=== PATIENT | male | born 1970 | race Caucasian/White ===

== ENCOUNTER 2016-05-30 18:22 | Emergency (ER) | payer MEDICARE, OTHER ==
[2016-05-30 18:34] VITALS: BP 136/82
--- NOTE | 2016-05-30 19:55 | ED ---
Lower Extremity Injury HPI - General Chief Complaint: Extremity Injury, Lower Stated Complaint: rt leg pain Time Seen by Provider: 05/30/16 19:01 Source: patient, RN notes reviewed Mode of arrival: ambulatory Limitations: no limitations - History of Present Illness Initial Comments: Patient is a 46-year-old male presenting to the with chief complaint of right thigh aching when he sits wrong. Time. He denies any swelling or injuries of the thigh. He states that he is concerned he has a blood clot because it aches. Patient also reports that his feet have occasional tingling- like pain. Patient denies any swelling of the leg or extremity. He reports he has had this pain for a few weeks. Patient reports the pain only occurs when he is sitting. He stated it is not worse with with Movement. Patient denies any recent fever, chills, shortness of breath, chest pain, back pain, abdominal pain, nausea vomiting, numbness or tingling, dysuria or hematuria, constipation or diarrhea, headaches or visual changes, or any other current symptoms - Related Data Home Medications Medication Instructions Recorded Confirmed Citalopram Hydrobromide [CeleXA] 40 mg PO DAILY 09/11/15 03/18/16 Metoprolol Tartrate [Lopressor] 50 mg PO BID 09/11/15 03/18/16 Simvastatin [Zocor] 10 mg PO HS 09/11/15 03/18/16 lamoTRIgine [LaMICtal] 25 mg PO DAILY 09/11/15 03/18/16 Omeprazole [PriLOSEC] 40 mg PO DAILY 03/18/16 03/18/16 Previous Rx's Medication Instructions Recorded Ibuprofen [Motrin] 800 mg PO Q6HR PRN #30 tab 09/11/15 predniSONE 50 mg PO DAILY #5 tab 03/18/16 Naproxen 500 mg PO Q12HR #20 tab 05/30/16 Allergies Allergy/AdvReac Type Severity Reaction Status Date / Time cephalexin monohydrate Allergy Unknown Verified 05/30/16 18:34 [From Keflex] Review of Systems ROS Statement: Those systems with pertinent positive or pertinent negative responses have been documented in the HPI. ROS Other: All systems not noted in ROS Statement are negative. Past Medical History Past Medical History: GERD/Reflux, Hyperlipidemia, Hypertension Additional Past Medical History / Comment(s): colitis History of Any Multi-Drug Resistant Organisms: None Reported Past Surgical History: No Surgical Hx Reported Past Psychological History: Panic Disorder Smoking Status: Former smoker Past Alcohol Use History: None Reported Past Drug Use History: None Reported General Exam - General Exam Comments Initial Comments: Patient is a 46-year-old male. He is on appear to be in any acute distress. Limitations: no limitations General appearance: alert, in no apparent distress Head exam: Present: atraumatic, normocephalic, normal inspection Eye exam: Present: normal appearance, PERRL, EOMI. Absent: scleral icterus, conjunctival injection, periorbital swelling ENT exam: Present: normal exam, mucous membranes moist Neck exam: Present: normal inspection. Absent: tenderness, meningismus, lymphadenopathy Respiratory exam: Present: normal lung sounds bilaterally. Absent: respiratory distress, wheezes, rales, rhonchi, stridor Cardiovascular Exam: Present: regular rate, normal rhythm, normal heart sounds. Absent: systolic murmur, diastolic murmur, rubs, gallop, clicks GI/Abdominal exam: Present: soft, normal bowel sounds. Absent: distended, tenderness, guarding, rebound, rigid Right Hip exam: Present: normal inspection, full ROM Upper Leg exam: Present: normal inspection, full ROM, tenderness (Reports some tenderness in the medial thigh.) Knee exam: Present: normal inspection, full ROM Lower Leg exam: Present: normal inspection, full ROM Ankle exam: Present: normal inspection, full ROM Foot/Toe exam: Present: normal inspection, full ROM Neurovascular tendon exam: Present: no vascular compromise Gait: observed and normal Back exam: Present: normal inspection Course Vital Signs 05/30/16 05/30/16 18:31 20:18 Temperature 97.9 F 98.0 F Pulse Rate 83 89 Respiratory 16 19 Rate Blood Pressure 136/82 O2 Sat by Pulse 96 98 Oximetry Medical Decision Making - Medical Decision Making Patient is a 46-year-old male. He does not appear to be in any acute distress. He is reporting he has right thigh pain that is only worse with sitting for long periods of time. He states that he has relatively inactive. Patient was given an ultrasound of the right lower extremity to rule out possible blood clot. Is very unlikely he has a blood clot. US was ruled to be negative for blood clot. Patient advised to follow up with PCP for nerve conduction studies. Patient given Rx for antiinflammatories. Patient understands treatment plan and will comply. - Radiology Data Radiology results: report reviewed US is negative for DVT. Disposition Clinical Impression: Strain of right quadriceps Disposition: HOME SELF-CARE Condition: Good Instructions: Muscle Strain (ED) Additional Instructions: Patient instructed to take anti-inflammatory medications as prescribed. Follow- up with primary care provider. Return to the [facility] if any alarming signs or symptoms occur. Prescriptions: Naproxen 500 mg PO Q12HR #20 tab Referrals: Nora Sepulveda DO [Primary Care Provider] - 1-2 days Time of Disposition: 20:08
--- NOTE | 2016-05-30 20:11 | US ---
EXAMINATION TYPE: US venous doppler duplex LE RT DATE OF EXAM: 05/30/2016 7:58 PM COMPARISON: NONE CLINICAL HISTORY: Pain. Right thigh pain, fell off roof x 6 months ago, been having issues since. No hx of blood clots or on blood thinners. SIDE PERFORMED: right VESSELS IMAGED: External Iliac Vein (EIV) Common Femoral Vein Deep Femoral Vein Greater Saphenous Vein * Femoral Vein Popliteal Vein Small Saphenous Vein * Proximal Calf Veins (* superficial vessels) TECHNOLOGIST IMPRESSION: Right Leg: Appears negative for DVT IMPRESSION: Normal exam. No evidence of deep venous thrombosis in the right leg.
[2016-05-30 20:19] VITALS: PULSE 89; RESP 19; TEMP 98
== END 2016-05-30 20:22 | disposition home or self-care (01) ==
LOC: EC 18:22
DX: S76.111A Strain of right quadriceps muscle, fascia and tendon, initial encounter (principal); K21.9 Gastro-esophageal reflux disease without esophagitis; E78.5 Hyperlipidemia, unspecified; I10 Essential (primary) hypertension; F41.0 Panic disorder [episodic paroxysmal anxiety]; Z87.891 Personal history of nicotine dependence; Z79.899 Other long term (current) drug therapy; Z88.1 Allergy status to other antibiotic agents; X58.XXXA Exposure to other specified factors, initial encounter
CPT/HCPCS: 99283

== ENCOUNTER 2016-06-26 09:26 | Emergency (ER) | payer MEDICARE, OTHER ==
[2016-06-26 10:15] LABS: Basophils % (A) 0 %; CH 31.5; CHCM 35.8; Eosinophils # (A) 0.2 k/uL (0-0.7); Eosinophils % (A) 3 %; HCT 43.3 % (39.0-53.0); HDW 2.78; HGB 14.8 gm/dL (13.0-17.5); Luc # (Auto) 0.11; Luc % (Auto) 2; Lymphocytes # (A) 1.1 k/uL (1.0-4.8); Lymphocytes % (A) 19 %; MCH 30.2 pg (25.0-35.0); MCHC 34.2 g/dL (31.0-37.0); MCV 88.4 fL (80.0-100.0); Mean Platelet Volume 6.9; Monocytes # (A) 0.3 k/uL (0-1.0); Monocytes % (A) 6 %; Neutrophils % (A) 70 %; RDW 12.8 % (11.5-15.5); WBC 5.8 k/uL (3.8-10.6); WBC (Perox) 5.72
[2016-06-26 10:23] LABS: Partial Thromboplastin Time 26.7 sec (22.0-30.0)
[2016-06-26 10:24] LABS: ALT 63 U/L (21-72); AST 35 U/L (17-59); Alkaline Phosphatase 76 U/L (38-126); Anion Gap 11 mmol/L; Blood Urea Nitrogen 16 mg/dL (9-20); Calcium 9.8 mg/dL (8.4-10.2); Carbon Dioxide 28 mmol/L (22-30); Chloride 104 mmol/L (98-107); Glucose 100 mg/dL (74-99); Magnesium 1.9 mg/dL (1.6-2.3); Non-African American GFR(MDRD) >60 (>60 ml/min/1.73 sqM); Potassium 4.7 mmol/L (3.5-5.1); Sodium 143 mmol/L (137-145); Total Bilirubin 0.9 mg/dL (0.2-1.3); Total Protein 7.9 g/dL (6.3-8.2)
--- NOTE | 2016-06-26 10:30 | ED ---
General Adult HPI - General Chief complaint: Chest Pain Stated complaint: chest pressure Time Seen by Provider: 06/26/16 09:47 Source: patient, RN notes reviewed, old records reviewed Mode of arrival: ambulatory Limitations: no limitations - History of Present Illness Initial comments: This is a 38-year-old male the ER for evaluation. This patient presents here for evaluation of chest pain, atypical chest pain. Patient does have history of high blood pressure no high cholesterol no diabetes no-shows of breath nonsmoker. Patient states he had a trauma occasionally feels pain stemming from his trauma which was a fall off roof with his leg in his neck and his back and his chest. Patient has no new trauma, no short of breath but states he started having sharp pain in his leg and then sharp pain in his chest starting last night. No modifying factors for pain all. Again no fevers, no travel history no history of DVT. Chest pain is mildly reproducible when he presses no rash noted. Patient has had stress tests in the past which was normal. At this time patient denies specific chest pain - Related Data Home Medications Medication Instructions Recorded Confirmed Citalopram Hydrobromide [CeleXA] 40 mg PO DAILY 09/11/15 06/26/16 Metoprolol Tartrate [Lopressor] 50 mg PO BID 09/11/15 06/26/16 Simvastatin [Zocor] 10 mg PO HS 09/11/15 06/26/16 lamoTRIgine [LaMICtal] 25 mg PO DAILY 09/11/15 06/26/16 Omeprazole [PriLOSEC] 40 mg PO DAILY 03/18/16 06/26/16 Previous Rx's Medication Instructions Recorded Ibuprofen [Motrin] 800 mg PO Q6HR PRN #30 tab 09/11/15 predniSONE 50 mg PO DAILY #5 tab 03/18/16 Naproxen 500 mg PO Q12HR #20 tab 05/30/16 Allergies Allergy/AdvReac Type Severity Reaction Status Date / Time cephalexin monohydrate Allergy Unknown Verified 06/26/16 09:36 [From [address]] Review of Systems ROS Statement: Those systems with pertinent positive or pertinent negative responses have been documented in the HPI. ROS Other: All systems not noted in ROS Statement are negative. Past Medical History Past Medical History: GERD/Reflux, Hyperlipidemia, Hypertension Additional Past Medical History / Comment(s): colitis History of Any Multi-Drug Resistant Organisms: None Reported Past Surgical History: No Surgical Hx Reported Past Psychological History: Panic Disorder Smoking Status: Former smoker Past Alcohol Use History: None Reported Past Drug Use History: None Reported General Exam Limitations: no limitations General appearance: alert, in no apparent distress Head exam: Present: atraumatic, normocephalic, normal inspection Eye exam: Present: normal appearance, PERRL, EOMI. Absent: scleral icterus, conjunctival injection, periorbital swelling ENT exam: Present: normal exam, mucous membranes moist Neck exam: Present: normal inspection. Absent: tenderness, meningismus, lymphadenopathy Respiratory exam: Present: normal lung sounds bilaterally. Absent: respiratory distress, wheezes, rales, rhonchi, stridor Cardiovascular Exam: Present: regular rate, normal rhythm, normal heart sounds. Absent: systolic murmur, diastolic murmur, rubs, gallop, clicks GI/Abdominal exam: Present: soft, normal bowel sounds. Absent: distended, tenderness, guarding, rebound, rigid Extremities exam: Present: normal inspection, full ROM, normal capillary refill. Absent: tenderness, pedal edema, joint swelling, calf tenderness Back exam: Present: normal inspection Neurological exam: Present: alert, oriented X3, CN II-XII intact Psychiatric exam: Present: normal affect, normal mood Skin exam: Present: warm, dry, intact, normal color. Absent: rash Course Vital Signs 06/26/16 06/26/16 09:33 11:00 Temperature 97.8 F Pulse Rate 69 58 L Respiratory 18 16 Rate Blood Pressure 126/84 126/71 O2 Sat by Pulse 97 96 Oximetry - Reevaluation(s) Reevaluation #1: 06/26/16 11:28 Patient consult to greater than 50 minutes regarding chest pain, chest pain greater than one day, low likelihood for cardiac event, patient would like to follow-up with his family care for further evaluation and testing. EKG Findings - EKG Comments: EKG Findings:: EKG shows normal sinus [place] 6, [place] 132, QRS 88, QTC 396 Medical Decision Making - Medical Decision Making 38 mallei are for evaluation of chest pain, patient will likely be discharged home as he feels well as a no acute distress x-rays negative labs and normal EKG is negative. Patient can be discharged home - Lab Data Result diagrams: 06/26/16 10:00 06/26/16 10:00 Lab Results 06/26/16 06/26/16 06/26/16 Range/Units 10:00 10:00 10:00 WBC 5.8 (3.8-10.6) k/uL RBC 4.90 (4.30-5.90) m/uL Hgb 14.8 (13.0-17.5) gm/dL Hct 43.3 (39.0-53.0) % MCV 88.4 (80.0-100.0) fL MCH 30.2 (25.0-35.0) pg MCHC 34.2 (31.0-37.0) g/dL RDW 12.8 (11.5-15.5) % Plt Count 238 (150-450) k/uL Neutrophils % 70 % Lymphocytes % 19 % Monocytes % 6 % Eosinophils % 3 % Basophils % 0 % Neutrophils # 4.0 (1.3-7.7) k/uL Lymphocytes # 1.1 (1.0-4.8) k/uL Monocytes # 0.3 (0-1.0) k/uL Eosinophils # 0.2 (0-0.7) k/uL Basophils # 0.0 (0-0.2) k/uL PT (9.0-12.0) sec INR (<1.1) APTT (22.0-30.0) sec Sodium 143 (137-145) mmol/L Potassium 4.7 (3.5-5.1) mmol/L Chloride 104 (98-107) mmol/L Carbon Dioxide 28 (22-30) mmol/L Anion Gap 11 mmol/L BUN 16 (9-20) mg/dL Creatinine 1.01 (0.66-1.25) mg/dL Est GFR (MDRD) Af Amer >60 (>60 ml/min/1.73 sqM) Est GFR (MDRD) Non-Af >60 (>60 ml/min/1.73 sqM) Glucose 100 H (74-99) mg/dL Calcium 9.8 (8.4-10.2) mg/dL Magnesium 1.9 (1.6-2.3) mg/dL Total Bilirubin 0.9 (0.2-1.3) mg/dL AST 35 (17-59) U/L ALT 63 (21-72) U/L Alkaline Phosphatase 76 (38-126) U/L Total Creatine Kinase 132 (55-170) U/L CK-MB (CK-2) 1.1 (0.0-2.4) ng/mL CK-MB (CK-2) Rel Index 0.8 Troponin I <0.012 (0.000-0.034) ng/mL Total Protein 7.9 (6.3-8.2) g/dL Albumin 4.6 (3.5-5.0) g/dL Lipase 178 (23-300) U/L 06/26/16 Range/Units 10:00 WBC (3.8-10.6) k/uL RBC (4.30-5.90) m/uL Hgb (13.0-17.5) gm/dL Hct (39.0-53.0) % MCV (80.0-100.0) fL MCH (25.0-35.0) pg MCHC (31.0-37.0) g/dL RDW (11.5-15.5) % Plt Count (150-450) k/uL Neutrophils % % Lymphocytes % % Monocytes % % Eosinophils % % Basophils % % Neutrophils # (1.3-7.7) k/uL Lymphocytes # (1.0-4.8) k/uL Monocytes # (0-1.0) k/uL Eosinophils # (0-0.7) k/uL Basophils # (0-0.2) k/uL PT 10.0 (9.0-12.0) sec INR 1.0 (<1.1) APTT 26.7 (22.0-30.0) sec Sodium (137-145) mmol/L Potassium (3.5-5.1) mmol/L Chloride (98-107) mmol/L Carbon Dioxide (22-30) mmol/L Anion Gap mmol/L BUN (9-20) mg/dL Creatinine (0.66-1.25) mg/dL Est GFR (MDRD) Af Amer (>60 ml/min/1.73 sqM) Est GFR (MDRD) Non-Af (>60 ml/min/1.73 sqM) Glucose (74-99) mg/dL Calcium (8.4-10.2) mg/dL Magnesium (1.6-2.3) mg/dL Total Bilirubin (0.2-1.3) mg/dL AST (17-59) U/L ALT (21-72) U/L Alkaline Phosphatase (38-126) U/L Total Creatine Kinase (55-170) U/L CK-MB (CK-2) (0.0-2.4) ng/mL CK-MB (CK-2) Rel Index Troponin I (0.000-0.034) ng/mL Total Protein (6.3-8.2) g/dL Albumin (3.5-5.0) g/dL Lipase (23-300) U/L - Radiology Data Radiology results: report reviewed (Chest x-ray two-view is negative for acute disease), image reviewed Disposition Clinical Impression: Atypical chest pain, Chest pain Disposition: HOME SELF-CARE Condition: Good Instructions: Costochondritis (ED), Chest Pain (ED) Referrals: Nora Sepulveda DO [Primary Care Provider] - 1-2 days
[2016-06-26 10:34] LABS: Creatine Kinase 132 U/L (55-170)
--- NOTE | 2016-06-26 10:45 | XR ---
EXAMINATION TYPE: XR chest 2V DATE OF EXAM: 06/26/2016 10:36 AM COMPARISON: NONE HISTORY: Chest pain TECHNIQUE: Frontal and lateral views of the chest are obtained. FINDINGS: There is no focal air space opacity, pleural effusion, or pneumothorax seen. The cardiac silhouette size is within normal limits. There are overlying cardiac leads. Strand-like areas of inc reased density likely reflect atelectasis or scarring in the substernal location. The osseous structu res are intact. IMPRESSION: Probable atelectasis or scar, follow-up as indicated
[2016-06-26 10:47] LABS: Creatine Kinase MB 1.1 ng/mL (0.0-2.4); Troponin I <0.012 ng/mL (0.000-0.034)
[2016-06-26 11:17] VITALS: RESP 16
[2016-06-26 11:53] VITALS: BP 120/71; PULSE 56; TEMP 97.2
== END 2016-06-26 11:51 | disposition home or self-care (01) ==
LOC: EC 09:26
DX: R07.89 Other chest pain (principal); I10 Essential (primary) hypertension; K21.9 Gastro-esophageal reflux disease without esophagitis; E78.5 Hyperlipidemia, unspecified; F41.0 Panic disorder [episodic paroxysmal anxiety]; Z79.899 Other long term (current) drug therapy; Z87.891 Personal history of nicotine dependence; Z88.1 Allergy status to other antibiotic agents
CPT/HCPCS: 36415; 71020; 80053; 82550; 82553; 83690; 83735; 84484; 85025; 85610; 85730; 93005; 99285

== ENCOUNTER 2016-07-08 10:38 | Day surgery (SDC) | payer MEDICARE, OTHER ==
[2016-07-06 10:39] VITALS: BMI 29.9
[~2016-07-08 10:38] MED LIST: LACTATED RINGERS 1,000 ML IV SCH
[2016-07-08 11:00] VITALS: TEMP 98.7
[2016-07-08] MEDS ORDERED: fentaNYL (PF) 50 MCG/ML 2 ML AMP ONE (11:37)
[2016-07-08] MEDS ORDERED: MIDAZOLAM 2 MG/2 ML VIAL ONE (11:37)
[2016-07-08] MEDS ORDERED: PROPOFOL 10 MG/ML 20 ML VIAL IV ONE (11:37)
--- NOTE | 2016-07-08 12:01 | P.PCN ---
Date of Procedure: 07/08/16 Procedure(s) Performed: Brief history: Patient is a pleasant 46-year-old white male, scheduled for an elective upper endoscopy as well as colonoscopy as a part of evaluation of abdominal pain, change in bowel habits and long-standing history of gastroesophageal reflux symptoms of almost 5 years duration. Procedure performed: Esophagogastroduodenoscopy biopsy Colonoscopy with biopsy Preoperative diagnosis: GERD Change in bowel habits and abdominal pain Anesthesia: MAC Procedure: After informed consent was obtained from the patient was brought into the endoscopy unit and IV conscious sedation was administered by anesthesia under continuous monitoring. Initially upper endoscopy was done. The Olympus GF 160 video endoscope was inserted inserted into the mouth and esophagus intubated without any difficulty and was gradually advanced into the stomach and duodenum and carefully examined. The bulb and second part of the duodenum appeared normal. The scope was then withdrawn into the stomach adequately insufflated with air and upon careful examination the antrum had mild gastritis and biopsies were done from this area. The body, cardia and fundus appeared normal. The scope was then withdrawn into the esophagus. The GE junction was located at 40 cm to the incisors. It appeared regular with no erythema erosions or ulcerations. Rest of the esophagus appeared normal. Patient tolerated the procedure well. At this time the patient continued to remain sedation. Initial digital rectal examination was normal. Olympus CF 160 video colonoscope was then inserted into the rectum and gradually advanced to the cecum without any difficulty. Careful examination was performed as the scope was gradually being withdrawn. The prep was excellent. The cecum, ascending colon, appeared normal. In the transverse colon there was a 3 mm polyp removed by biopsy. The rest of the transverse colon, descending colon, sigmoid colon and rectum appeared normal. in the proximal rectum there was a 5 mm polyp that was removed by biopsy. Retroflexion was performed in the rectum and no lesions were noted. Patient tolerated the procedure well. Impression: 1.Upper endoscopy revealed mild antral gastritis but no evidence of esophagitis or peptic ulcer disease 2.[id number] revealed 2 mm transverse colon polyp and 5 mm rectal polyp which were removed by biopsy. Rest of the colon appeared normal. Recommendations: Findings of this examination were discussed with the patient as well ashis family. He was advised to follow with the biopsy results. If the biopsy shows a tubular adenoma he can have a repeat colonoscopy in 5 years.
[2016-07-08 12:13] VITALS: RESP 18
[2016-07-08 13:05] VITALS: BP 140/76; PULSE 70
== END 2016-07-08 12:59 | disposition home or self-care (01) ==
LOC: ORWHC2ENDO 10:38
PROVIDERS: ATTEND Internal Medicine Gastroenterology
DX: K29.50 Unspecified chronic gastritis without bleeding (principal); D12.3 Benign neoplasm of transverse colon; K62.1 Rectal polyp; K21.9 Gastro-esophageal reflux disease without esophagitis; I10 Essential (primary) hypertension; Z79.1 Long term (current) use of non-steroidal anti-inflammatories (NSAID); Z79.899 Other long term (current) drug therapy; Z88.1 Allergy status to other antibiotic agents; Z87.891 Personal history of nicotine dependence
CPT/HCPCS: 88305; 88342; 45380; 43239; J2250; J3010; J2704

== ENCOUNTER 2016-08-19 22:20 | Emergency (ER) | payer MEDICARE, OTHER ==
[2016-08-19 22:28] VITALS: TEMP 98.5
[2016-08-19 23:26] LABS: Basophils # (A) 0.1 k/uL (0-0.2); Basophils % (A) 1 %; CH 31.6; Eosinophils # (A) 0.3 k/uL (0-0.7); Eosinophils % (A) 4 %; HDW 2.68; HGB 14.8 gm/dL (13.0-17.5); Luc # (Auto) 0.19; Luc % (Auto) 3; Lymphocytes % (A) 28 %; MCH 31.2 pg (25.0-35.0); MCHC 34.4 g/dL (31.0-37.0); MCV 90.9 fL (80.0-100.0); Mean Platelet Volume 6.4; Monocytes # (A) 0.4 k/uL (0-1.0); Monocytes % (A) 5 %; Neutrophils # (A) 4.3 k/uL (1.3-7.7); Neutrophils % (A) 60 %; RBC 4.73 m/uL (4.30-5.90); RDW 13.3 % (11.5-15.5); WBC 7.1 k/uL (3.8-10.6); WBC (Perox) 6.67
[2016-08-19 23:37] LABS: ALT 56 U/L (21-72); AST 33 U/L (17-59); Alkaline Phosphatase 84 U/L (38-126); Amylase 60 U/L (30-110); Anion Gap 12 mmol/L; Blood Urea Nitrogen 20 mg/dL (9-20); Calcium 9.5 mg/dL (8.4-10.2); Carbon Dioxide 24 mmol/L (22-30); Chloride 107 mmol/L (98-107); Glucose 112 mg/dL (74-99); Magnesium 1.9 mg/dL (1.6-2.3); Non-African American GFR(MDRD) >60 (>60 ml/min/1.73 sqM); Potassium 4.5 mmol/L (3.5-5.1); Sodium 143 mmol/L (137-145); Total Bilirubin 0.6 mg/dL (0.2-1.3); Total Protein 7.4 g/dL (6.3-8.2)
[2016-08-19 23:40] LABS: Partial Thromboplastin Time 26.6 sec (22.0-30.0); Prothrombin Time 9.9 sec (9.0-12.0)
--- NOTE | 2016-08-19 23:40 | XR ---
EXAM: XR Chest, 1 View. CLINICAL HISTORY: Reason: chest pain TECHNIQUE: Frontal view of the chest. COMPARISON: Chest x-ray 06/26/2016 FINDINGS: Lungs: Stable minimal linear opacity at the left lung base, likely atelectasis or scarring. Lungs are otherwise clear. Pleural space: No pleural effusion. No pneumothorax. Heart: Unremarkable. No cardiomegaly. Mediastinum: Unremarkable. IMPRESSION: 1. No acute cardiopulmonary disease. 2. Stable linear opacity at the left lung base, likely atelectasis or scarring.
[2016-08-19 23:48] LABS: Creatine Kinase 131 U/L (55-170)
[2016-08-20] VITALS: BP 122/74; PULSE 75; RESP 18
[2016-08-20] LABS: Creatine Kinase MB 1.5 ng/mL (0.0-2.4); Troponin I <0.012 ng/mL (0.000-0.034)
--- NOTE | 2016-08-20 00:57 | ED ---
Chest Pain HPI - General Chief Complaint: Chest Pain Stated Complaint: left chest and rib pain Time Seen by Provider: 08/19/16 22:41 Source: patient Mode of arrival: ambulatory Limitations: no limitations - History of Present Illness Initial Comments: this patient is a 46-year-old man who presents with pain that started in his left lateral chest on morning. The patient states that it feels like a bubble is there. He states that the pain is mild, constant, and that he does not know anything that makes it get better or worse. States that it does not seem to be related to exertion area he has not had any related symptoms. MD Complaint: chest pain -: days(s) Onset: during rest Pain Location: left chest Pain Radiation: none Severity: mild Quality: other (Like a bubble) Consistency: constant Improves With: nothing Worsens With: nothing Treatments Prior to Arrival: none - Related Data Home Medications Medication Instructions Recorded Confirmed Citalopram Hydrobromide [CeleXA] 40 mg PO DAILY 09/11/15 08/19/16 Metoprolol Tartrate [Lopressor] 50 mg PO BID 09/11/15 08/19/16 lamoTRIgine [LaMICtal] 25 mg PO BID 09/11/15 08/19/16 Omeprazole [PriLOSEC] 40 mg PO DAILY 03/18/16 08/19/16 Lisinopril [Zestril] 10 mg PO HS 07/06/16 08/19/16 Multivitamin [Men's Multi-Vitamin] 1 tab PO HS 07/06/16 08/19/16 Cyanocobalamin (Vitamin B-12) 1,000 mcg PO HS 08/19/16 08/19/16 [Vitamin B-12] Simvastatin [Zocor] 10 mg PO HS 08/19/16 08/19/16 Topical Steroid Cream 1 applic TOPICAL DAILY 08/19/16 08/19/16 Allergies Allergy/AdvReac Type Severity Reaction Status Date / Time cephalexin monohydrate AdvReac Nausea & Verified 08/19/16 22:57 [From Keflex] Vomiting Review of Systems ROS Statement: Those systems with pertinent positive or pertinent negative responses have been documented in the HPI. ROS Other: All systems not noted in ROS Statement are negative. Constitutional: Denies: fever, chills Respiratory: Denies: cough, dyspnea Cardiovascular: Reports: chest pain. Denies: palpitations, dyspnea on exertion , orthopnea, edema, syncope Gastrointestinal: Denies: abdominal pain, nausea, vomiting Musculoskeletal: Denies: back pain Skin: Denies: rash Neurological: Denies: headache, weakness, numbness EKG Findings - EKG Results: EKG: interpreted by RAMESH, sinus rhythm, normal axis, normal QRS - Blocks, [place], Hypertrophy, ST Abn: Repolarization changes or abnormalities: nonspecific abnormality, ST segment, and/or T wave Past Medical History Past Medical History: GERD/Reflux, Hyperlipidemia, Hypertension Additional Past Medical History / Comment(s): PSORIASIS, COLITIS, FELL OFF ROOF 7 MONTHS AGO AND HAS SOME BACK PAIN. History of Any Multi-Drug Resistant Organisms: None Reported Past Surgical History: Adenoidectomy, Tonsillectomy Additional Past Surgical History / Comment(s): T & A (7 YRS OLD) Past Anesthesia/Blood Transfusion Reactions: No Reported Reaction Past Psychological History: Bipolar, Panic Disorder Smoking Status: Former smoker Past Alcohol Use History: None Reported Additional Past Alcohol Use History / Comment(s): QUIT SMOKING 1 YEAR AGO (2016) . SMOKED 1 PPD ON AND OFF FOR 15-20 YRS. Past Drug Use History: None Reported - Past Family History Mother Family Medical History: Cancer Additional Family Medical History / Comment(s): MELANOMA Father Family Medical History: Cancer Additional Family Medical History / Comment(s): PROSTATE CANCER General Exam Limitations: no limitations General appearance: alert, in no apparent distress Head exam: Present: atraumatic, normocephalic, normal inspection Eye exam: Present: normal appearance. Absent: scleral icterus, conjunctival injection Neck exam: Present: normal inspection, full ROM Respiratory exam: Present: normal lung sounds bilaterally. Absent: respiratory distress, wheezes, rales, rhonchi, stridor Cardiovascular Exam: Present: regular rate, normal rhythm, normal heart sounds. Absent: systolic murmur, diastolic murmur, rubs, gallop GI/Abdominal exam: Present: soft. Absent: tenderness, guarding, rebound Extremities exam: Present: normal inspection, normal capillary refill. Absent: pedal edema, calf tenderness Back exam: Present: normal inspection. Absent: CVA tenderness (R), CVA tenderness (L) Skin exam: Present: warm, dry, intact, normal color. Absent: rash Course Vital Signs 08/19/16 08/19/16 22:26 23:59 Temperature 98.5 F Pulse Rate 90 75 Respiratory 20 18 Rate Blood Pressure 139/75 122/74 O2 Sat by Pulse 98 97 Oximetry Disposition Clinical Impression: Chest pain Disposition: HOME SELF-CARE Condition: Good Instructions: Chest Pain (ED) Referrals: Nora Sepulveda DO [Primary Care Provider] - 1-2 days
== END 2016-08-20 01:16 | disposition home or self-care (01) ==
LOC: EC 22:20
DX: R07.9 Chest pain, unspecified (principal); I10 Essential (primary) hypertension; F31.9 Bipolar disorder, unspecified; K21.9 Gastro-esophageal reflux disease without esophagitis; E78.5 Hyperlipidemia, unspecified; Z88.1 Allergy status to other antibiotic agents; Z87.891 Personal history of nicotine dependence; Z79.899 Other long term (current) drug therapy
CPT/HCPCS: 36415; 71010; 80053; 82150; 82550; 82553; 83690; 83735; 84484; 85025; 85379; 85610; 85730; 93005; 99285

== ENCOUNTER 2016-11-14 05:57 | Observation (INO) | payer MEDICARE, OTHER ==
[2016-11-14] MEDS ORDERED: SODIUM CHLORIDE 0.9% 1,000 ML IV STA ×2 (06:18)
[2016-11-14] MEDS ORDERED: LORazepam 2 MG/ML SYRINGE IV STA (06:19)
[2016-11-14] MEDS: MORPHINE SULFATE 4 MG/ML SYRINGE IV STA ×2 (06:44→06:46)
[2016-11-14 06:56] LABS: Basophils % (A) 0 %; CH 31.4; CHCM 36.1; Eosinophils # (A) 0.2 k/uL (0-0.7); Eosinophils % (A) 4 %; HDW 2.79; HGB 15.2 gm/dL (13.0-17.5); Luc # (Auto) 0.14; Luc % (Auto) 3; Lymphocytes # (A) 1.4 k/uL (1.0-4.8); Lymphocytes % (A) 28 %; MCH 31.6 pg (25.0-35.0); MCHC 36.1 g/dL (31.0-37.0); MCV 87.6 fL (80.0-100.0); Mean Platelet Volume 6.5; Monocytes # (A) 0.4 k/uL (0-1.0); Monocytes % (A) 7 %; Neutrophils # (A) 2.9 k/uL (1.3-7.7); Neutrophils % (A) 58 %; RDW 13.3 % (11.5-15.5); WBC 5.1 k/uL (3.8-10.6); WBC (Perox) 4.77
[2016-11-14 07:06] LABS: ALT 61 U/L (21-72); AST 33 U/L (17-59); Alkaline Phosphatase 91 U/L (38-126); Anion Gap 11 mmol/L; Blood Urea Nitrogen 17 mg/dL (9-20); Calcium 9.4 mg/dL (8.4-10.2); Carbon Dioxide 25 mmol/L (22-30); Chloride 106 mmol/L (98-107); Glucose 157 mg/dL (74-99); INR 0.9 (<1.1); Magnesium 1.9 mg/dL (1.6-2.3); Non-African American GFR(MDRD) >60 (>60 ml/min/1.73 sqM); Partial Thromboplastin Time 26.1 sec (22.0-30.0); Prothrombin Time 9.7 sec (9.0-12.0); Sodium 142 mmol/L (137-145); Total Bilirubin 0.7 mg/dL (0.2-1.3); Total Protein 7.3 g/dL (6.3-8.2)
--- NOTE | 2016-11-14 07:13 | ED ---
General Adult HPI - General Chief complaint: Chest Pain Stated complaint: Chest Pain Time Seen by Provider: 11/14/16 06:00 Source: patient, RN notes reviewed, old records reviewed Mode of arrival: wheelchair Limitations: no limitations - History of Present Illness Initial comments: This is a 38-year-old male to the ER for reevaluation of chest pain. Chest pain and anxiety and palpitations. Patient has history of high blood pressure and high cholesterol. Patient is anxiety comments recently been weaning himself off of his blood pressure medication as he thought it might be causing his anxiety. Patient will sleep with his heart beating in his chest, felt mildly short of breath and is generally didn't feel well. His company of chest pain again and heart racing. Denies any fever no recent cough or congestion. No [facility] renal sick contacts, patient was in the hospital [place] month ago for similar type issues. No modifying factors for pain - Related Data Home Medications Medication Instructions Recorded Confirmed Citalopram Hydrobromide [CeleXA] 40 mg PO DAILY 09/11/15 11/14/16 Metoprolol Tartrate [Lopressor] 50 mg PO DAILY 09/11/15 11/14/16 lamoTRIgine [LaMICtal] 25 mg PO BID 09/11/15 11/14/16 Omeprazole [PriLOSEC] 40 mg PO DAILY 03/18/16 11/14/16 Lisinopril [Zestril] 10 mg PO HS 07/06/16 11/14/16 Multivitamin [Men's Multi-Vitamin] 1 tab PO HS 07/06/16 11/14/16 Cyanocobalamin (Vitamin B-12) 1,000 mcg PO HS 08/19/16 11/14/16 [Vitamin B-12] Simvastatin [Zocor] 10 mg PO HS 08/19/16 11/14/16 Topical Steroid Cream 1 applic TOPICAL DAILY PRN 08/19/16 11/14/16 Allergies Allergy/AdvReac Type Severity Reaction Status Date / Time cephalexin monohydrate AdvReac Nausea & Verified 11/14/16 06:01 [From Keflex] Vomiting Review of Systems ROS Statement: Those systems with pertinent positive or pertinent negative responses have been documented in the HPI. ROS Other: All systems not noted in ROS Statement are negative. Past Medical History Past Medical History: GERD/Reflux, Hyperlipidemia, Hypertension Additional Past Medical History / Comment(s): PSORIASIS, Back Pain History of Any Multi-Drug Resistant Organisms: None Reported Past Surgical History: Adenoidectomy, Tonsillectomy Additional Past Surgical History / Comment(s): T & A (7 YRS OLD) Past Anesthesia/Blood Transfusion Reactions: No Reported Reaction Past Psychological History: Bipolar, Panic Disorder Smoking Status: Former smoker Past Alcohol Use History: None Reported Past Drug Use History: None Reported - Past Family History Mother Family Medical History: Cancer Additional Family Medical History / Comment(s): MELANOMA Father Family Medical History: Cancer Additional Family Medical History / Comment(s): PROSTATE CANCER General Exam Limitations: no limitations General appearance: anxious Head exam: Present: atraumatic, normocephalic, normal inspection Eye exam: Present: normal appearance, PERRL, EOMI. Absent: scleral icterus, conjunctival injection, periorbital swelling ENT exam: Present: normal exam, mucous membranes moist Neck exam: Present: normal inspection. Absent: tenderness, meningismus, lymphadenopathy Respiratory exam: Present: normal lung sounds bilaterally. Absent: respiratory distress, wheezes, rales, rhonchi, stridor Cardiovascular Exam: Present: regular rate, normal rhythm, normal heart sounds. Absent: systolic murmur, diastolic murmur, rubs, gallop, clicks GI/Abdominal exam: Present: soft, normal bowel sounds. Absent: distended, tenderness, guarding, rebound, rigid Extremities exam: Present: normal inspection, full ROM, normal capillary refill. Absent: tenderness, pedal edema, joint swelling, calf tenderness Back exam: Present: normal inspection Neurological exam: Present: alert, oriented X3, CN II-XII intact Psychiatric exam: Present: normal affect, normal mood Skin exam: Present: warm, dry, intact, normal color. Absent: rash Course Vital Signs 11/14/16 05:59 Temperature 97.4 F L Pulse Rate 111 H Respiratory 18 Rate Blood Pressure 155/96 O2 Sat by Pulse 99 Oximetry - Reevaluation(s) Reevaluation #1: 11/14/16 07:43 Patient has resolution of pain and symptoms EKG Findings - EKG Comments: EKG Findings:: EKG shows normal sinus rhythm rate of 97, OR 162, QRS 94, QTC 447 Medical Decision Making - Medical Decision Making 38 male here for evaluation of chest pain palpitations and anxiety. Patient's symptoms at this time or adequately resolved and patient will be discharged home - Lab Data Result diagrams: 11/14/16 06:42 11/14/16 06:42 Lab Results 11/14/16 11/14/16 11/14/16 Range/Units 06:42 06:42 06:42 WBC 5.1 (3.8-10.6) k/uL RBC 4.80 (4.30-5.90) m/uL Hgb 15.2 (13.0-17.5) gm/dL Hct 42.0 (39.0-53.0) % MCV 87.6 (80.0-100.0) fL MCH 31.6 (25.0-35.0) pg MCHC 36.1 (31.0-37.0) g/dL RDW 13.3 (11.5-15.5) % Plt Count 223 (150-450) k/uL Neutrophils % 58 % Lymphocytes % 28 % Monocytes % 7 % Eosinophils % 4 % Basophils % 0 % Neutrophils # 2.9 (1.3-7.7) k/uL Lymphocytes # 1.4 (1.0-4.8) k/uL Monocytes # 0.4 (0-1.0) k/uL Eosinophils # 0.2 (0-0.7) k/uL Basophils # 0.0 (0-0.2) k/uL PT (9.0-12.0) sec INR (<1.1) APTT (22.0-30.0) sec D-Dimer (<0.60) mg/L FEU Sodium 142 (137-145) mmol/L Potassium 4.0 (3.5-5.1) mmol/L Chloride 106 (98-107) mmol/L Carbon Dioxide 25 (22-30) mmol/L Anion Gap 11 mmol/L BUN 17 (9-20) mg/dL Creatinine 0.92 (0.66-1.25) mg/dL Est GFR (MDRD) Af Amer >60 (>60 ml/min/1.73 sqM) Est GFR (MDRD) Non-Af >60 (>60 ml/min/1.73 sqM) Glucose 157 H (74-99) mg/dL Calcium 9.4 (8.4-10.2) mg/dL Magnesium 1.9 (1.6-2.3) mg/dL Total Bilirubin 0.7 (0.2-1.3) mg/dL AST 33 (17-59) U/L ALT 61 (21-72) U/L Alkaline Phosphatase 91 (38-126) U/L Total Creatine Kinase 118 (55-170) U/L CK-MB (CK-2) 1.3 (0.0-2.4) ng/mL CK-MB (CK-2) Rel Index 1.1 Troponin I <0.012 (0.000-0.034) ng/mL Total Protein 7.3 (6.3-8.2) g/dL Albumin 4.4 (3.5-5.0) g/dL Lipase 267 (23-300) U/L 11/14/16 Range/Units 06:42 WBC (3.8-10.6) k/uL RBC (4.30-5.90) m/uL Hgb (13.0-17.5) gm/dL Hct (39.0-53.0) % MCV (80.0-100.0) fL MCH (25.0-35.0) pg MCHC (31.0-37.0) g/dL RDW (11.5-15.5) % Plt Count (150-450) k/uL Neutrophils % % Lymphocytes % % Monocytes % % Eosinophils % % Basophils % % Neutrophils # (1.3-7.7) k/uL Lymphocytes # (1.0-4.8) k/uL Monocytes # (0-1.0) k/uL Eosinophils # (0-0.7) k/uL Basophils # (0-0.2) k/uL PT 9.7 (9.0-12.0) sec INR 0.9 (<1.1) APTT 26.1 (22.0-30.0) sec D-Dimer 0.27 (<0.60) mg/L FEU Sodium (137-145) mmol/L Potassium (3.5-5.1) mmol/L Chloride (98-107) mmol/L Carbon Dioxide (22-30) mmol/L Anion Gap mmol/L BUN (9-20) mg/dL Creatinine (0.66-1.25) mg/dL Est GFR (MDRD) Af Amer (>60 ml/min/1.73 sqM) Est GFR (MDRD) Non-Af (>60 ml/min/1.73 sqM) Glucose (74-99) mg/dL Calcium (8.4-10.2) mg/dL Magnesium (1.6-2.3) mg/dL Total Bilirubin (0.2-1.3) mg/dL AST (17-59) U/L ALT (21-72) U/L Alkaline Phosphatase (38-126) U/L Total Creatine Kinase (55-170) U/L CK-MB (CK-2) (0.0-2.4) ng/mL CK-MB (CK-2) Rel Index Troponin I (0.000-0.034) ng/mL Total Protein (6.3-8.2) g/dL Albumin (3.5-5.0) g/dL Lipase (23-300) U/L - Radiology Data Radiology results: report reviewed (Chest x-ray negative for acute disease), image reviewed Disposition Clinical Impression: Chest pain, Anxiety Disposition: HOME SELF-CARE Condition: Good Instructions: Chest Pain (ED) Referrals: Nora Sepulveda DO [Primary Care Provider] - 1-2 days
[2016-11-14 07:18] LABS: Creatine Kinase 118 U/L (55-170)
[2016-11-14 07:31] LABS: Creatine Kinase MB 1.3 ng/mL (0.0-2.4); Troponin I <0.012 ng/mL (0.000-0.034)
[2016-11-14] MEDS ORDERED: NITROGLYCERIN SL TABS 0.4 MG TAB SUBLINGUAL PRN (07:49)
[2016-11-14] MEDS ORDERED: HEPARIN SODIUM,PORCINE 5,000 UNIT/ML 1 ML VIAL IV PRN (07:49)
[2016-11-14] MEDS ORDERED: ASPIRIN 81 MG CHEW PO STA (07:49)
--- NOTE | 2016-11-14 07:49 | ED ---
Medical Decision Making - Medical Decision Making 38 male first reevaluation states he was feeling better but is "palpitations and chest pain again, secondary to history of high blood pressure high cholesterol patient will be admitted for cardiac observation serial troponins, and cardiac evaluation. Again initial EKG and troponin are negative. - Lab Data Result diagrams: 11/14/16 06:42 11/14/16 06:42 Lab Results 11/14/16 11/14/16 11/14/16 Range/Units 06:42 06:42 06:42 WBC 5.1 (3.8-10.6) k/uL RBC 4.80 (4.30-5.90) m/uL Hgb 15.2 (13.0-17.5) gm/dL Hct 42.0 (39.0-53.0) % MCV 87.6 (80.0-100.0) fL MCH 31.6 (25.0-35.0) pg MCHC 36.1 (31.0-37.0) g/dL RDW 13.3 (11.5-15.5) % Plt Count 223 (150-450) k/uL Neutrophils % 58 % Lymphocytes % 28 % Monocytes % 7 % Eosinophils % 4 % Basophils % 0 % Neutrophils # 2.9 (1.3-7.7) k/uL Lymphocytes # 1.4 (1.0-4.8) k/uL Monocytes # 0.4 (0-1.0) k/uL Eosinophils # 0.2 (0-0.7) k/uL Basophils # 0.0 (0-0.2) k/uL PT (9.0-12.0) sec INR (<1.1) APTT (22.0-30.0) sec D-Dimer (<0.60) mg/L FEU Sodium 142 (137-145) mmol/L Potassium 4.0 (3.5-5.1) mmol/L Chloride 106 (98-107) mmol/L Carbon Dioxide 25 (22-30) mmol/L Anion Gap 11 mmol/L BUN 17 (9-20) mg/dL Creatinine 0.92 (0.66-1.25) mg/dL Est GFR (MDRD) Af Amer >60 (>60 ml/min/1.73 sqM) Est GFR (MDRD) Non-Af >60 (>60 ml/min/1.73 sqM) Glucose 157 H (74-99) mg/dL Calcium 9.4 (8.4-10.2) mg/dL Magnesium 1.9 (1.6-2.3) mg/dL Total Bilirubin 0.7 (0.2-1.3) mg/dL AST 33 (17-59) U/L ALT 61 (21-72) U/L Alkaline Phosphatase 91 (38-126) U/L Total Creatine Kinase 118 (55-170) U/L CK-MB (CK-2) 1.3 (0.0-2.4) ng/mL CK-MB (CK-2) Rel Index 1.1 Troponin I <0.012 (0.000-0.034) ng/mL Total Protein 7.3 (6.3-8.2) g/dL Albumin 4.4 (3.5-5.0) g/dL Lipase 267 (23-300) U/L 11/14/16 Range/Units 06:42 WBC (3.8-10.6) k/uL RBC (4.30-5.90) m/uL Hgb (13.0-17.5) gm/dL Hct (39.0-53.0) % MCV (80.0-100.0) fL MCH (25.0-35.0) pg MCHC (31.0-37.0) g/dL RDW (11.5-15.5) % Plt Count (150-450) k/uL Neutrophils % % Lymphocytes % % Monocytes % % Eosinophils % % Basophils % % Neutrophils # (1.3-7.7) k/uL Lymphocytes # (1.0-4.8) k/uL Monocytes # (0-1.0) k/uL Eosinophils # (0-0.7) k/uL Basophils # (0-0.2) k/uL PT 9.7 (9.0-12.0) sec INR 0.9 (<1.1) APTT 26.1 (22.0-30.0) sec D-Dimer 0.27 (<0.60) mg/L FEU Sodium (137-145) mmol/L Potassium (3.5-5.1) mmol/L Chloride (98-107) mmol/L Carbon Dioxide (22-30) mmol/L Anion Gap mmol/L BUN (9-20) mg/dL Creatinine (0.66-1.25) mg/dL Est GFR (MDRD) Af Amer (>60 ml/min/1.73 sqM) Est GFR (MDRD) Non-Af (>60 ml/min/1.73 sqM) Glucose (74-99) mg/dL Calcium (8.4-10.2) mg/dL Magnesium (1.6-2.3) mg/dL Total Bilirubin (0.2-1.3) mg/dL AST (17-59) U/L ALT (21-72) U/L Alkaline Phosphatase (38-126) U/L Total Creatine Kinase (55-170) U/L CK-MB (CK-2) (0.0-2.4) ng/mL CK-MB (CK-2) Rel Index Troponin I (0.000-0.034) ng/mL Total Protein (6.3-8.2) g/dL Albumin (3.5-5.0) g/dL Lipase (23-300) U/L Critical Care Time Critical Care Time: Yes Total Critical Care Time: 31 Disposition Clinical Impression: Chest pain, Anxiety Disposition: ADMITTED IP TO THIS HOSP Condition: Good Instructions: Chest Pain (ED) Referrals: Nora Sepulveda DO [Primary Care Provider] - 1-2 days
[2016-11-14] MEDS ORDERED: HEPARIN SODIUM,PORCINE 5,000 UNIT/ML 1 ML VIAL IV ONE (07:51)
[2016-11-14] MEDS ORDERED: HEPARIN SODIUM,PORCINE/D5W PMX 25,000 UNIT in DEXTROSE/WATER 1 500ML.BAG IV SCH (08:00)
--- NOTE | 2016-11-14 08:09 | XR ---
EXAMINATION TYPE: XR chest 2V DATE OF EXAM: 11/14/2016 COMPARISON: Prior chest x-ray 08/19/2016 HISTORY: Chest pain TECHNIQUE: Frontal and lateral views of the chest are obtained. FINDINGS: There is no pleural effusion, or pneumothorax seen. Minimal linear stranding is present l ikely reflective of atelectasis or scarring. The cardiac silhouette size is within normal limits. Th ere are overlying cardiac leads. The osseous structures are intact. IMPRESSION: No acute cardiopulmonary process.
[2016-11-14] MEDS ORDERED: PANTOPRAZOLE 40 MG TABLET PO SCH (08:45)
[2016-11-14] MEDS ORDERED: LISINOPRIL 10 MG TAB PO SCH (09:00)
[2016-11-14] MEDS ORDERED: lamoTRIgine 25 MG TAB PO SCH (09:00)
[2016-11-14] MEDS ORDERED: CITALOPRAM HYDROBROMIDE 20 MG TAB PO SCH (09:00)
[2016-11-14] MEDS ORDERED: METOPROLOL TARTRATE 50 MG TAB PO SCH (09:00)
[2016-11-14] MEDS ORDERED: ATORVASTATIN 10 MG TAB PO SCH (09:00)
[2016-11-14 09:38] VITALS: RESP 16
[2016-11-14 11:22] VITALS: TEMP 98.5
[2016-11-14] MEDS ORDERED: CYANOCOBALAMIN 500 MCG TAB PO SCH (12:00)
[2016-11-14] MEDS ORDERED: MULTIVITAMINS, THERA 1 EACH TAB PO SCH (12:00)
[2016-11-14 13:13] LABS: Creatine Kinase 101 U/L (55-170)
[2016-11-14 13:27] LABS: Troponin I <0.012 ng/mL (0.000-0.034)
--- NOTE | 2016-11-14 15:10 | P.HPIM ---
History of Present Illness H&P Date: 11/14/16 Chief Complaint: Chest pain This is a pleasant 46-year-old patient of Dr. Sepulveda. Chronic stable medical conditions include GERD, hyperlipidemia, psoriasis, bipolar disorder. Patient presents with burning sensation in the chest around 4:00 in the morning. This symptoms came off and on for variable time.. Had some dizziness. No perspiration or shortness of breath. Patient stopped taking his blood pressure medication some time ago because he thought it was running too high or too low and did not follow the family doctor as the pack train driver's was, hour away. significant past medical history: GERD, hypertension, hyperlipidemia, psoriasis, bipolar disorder Review of Systems GEN.: None EYES: None HEENT: None NECK: None RESPIRATORY: None CARDIOVASCULAR: As above GASTROINTESTINAL: GERD GENITOURINARY: None MUSCULOSKELETAL: None LYMPHATICS: None HEMATOLOGICAL: None PSYCHIATRY: None NEUROLOGICAL: None DERMATOLOGICAL: Psoriatic rash Past Medical History Past Medical History: GERD/Reflux, Hyperlipidemia, Hypertension, Skin Disorder Additional Past Medical History / Comment(s): PSORIASIS, back Pain History of Any Multi-Drug Resistant Organisms: None Reported Past Surgical History: Adenoidectomy, Tonsillectomy Additional Past Surgical History / Comment(s): T & A (7 YRS OLD), EGD/ colonoscopy Past Anesthesia/Blood Transfusion Reactions: Postoperative Nausea & Vomiting ( PONV) Smoking Status: Former smoker Additional History: Patient smoked for 15 years, stopped in 2015. No alcohol. . Patient is on disability - Past Family History Mother Family Medical History: Cancer Additional Family Medical History / Comment(s): MELANOMA Father Family Medical History: Cancer Additional Family Medical History / Comment(s): PROSTATE CANCER. Medications and Allergies Home Medications Medication Instructions Recorded Confirmed Type Citalopram Hydrobromide [CeleXA] 40 mg PO DAILY 09/11/15 11/14/16 History Metoprolol Tartrate [Lopressor] 50 mg PO DAILY 09/11/15 11/14/16 History lamoTRIgine [LaMICtal] 25 mg PO BID 09/11/15 11/14/16 History Omeprazole [PriLOSEC] 40 mg PO DAILY 03/18/16 11/14/16 History Lisinopril [Zestril] 10 mg PO DAILY 07/06/16 11/14/16 History Multivitamin [Men's Multi-Vitamin] 1 tab PO DAILY 07/06/16 11/14/16 History Cyanocobalamin (Vitamin B-12) 1,000 mcg PO DAILY 08/19/16 11/14/16 History [Vitamin B-12] Simvastatin [Zocor] 10 mg PO DAILY 08/19/16 11/14/16 History Triamcinolone 0.1% Cream [Kenalog] 1 applicatio TOPICAL BID PRN 11/14/16 History Allergies Allergy/AdvReac Type Severity Reaction Status Date / Time cephalexin monohydrate AdvReac Nausea & Verified 11/14/16 07:59 [From Keflex] Vomiting Physical Exam Vitals: Vital Signs Temp Pulse Pulse Resp BP BP Pulse Ox 11/14/16 11:17 98.5 F 66 16 130/73 97 11/14/16 09:36 98.3 F 94 16 155/88 97 11/14/16 08:11 98.9 F 79 18 119/67 96 11/14/16 05:59 97.4 F L 111 H 18 155/96 99 Intake and Output Patient Weight 11/15/16 06:59 Weight 103.8 kg VITAL SIGNS: Reviewed. BMI noted GENERAL: Average built, laying in bed, comfortable. EYES: Pupils equal. Conjunctiva normal. HEENT: External appearance of nose and ears normal, oral cavity grossly normal. NECK: JVD not raised; masses not palpable. HEART: First and second heart sounds are normal; no edema. LUNGS: Respiratory rate normal; clear to auscultation. ABDOMEN: Soft, nontender, liver spleen not palpable, no masses palpable. LYMPHATICS: No lymph nodes palpable in the axilla and neck. PSYCH: Alert and oriented x3; mood and affect normal. NEUROLOGICAL: Cranial nerves grossly intact; no facial asymmetry, power and sensation grossly intact. DERMATOLOGICAL: Scattered psoriatic rash Results CBC & Chem 7: 11/14/16 06:42 11/14/16 06:42 Labs: Abnormal Lab Results - Last 24 Hours (Table) 11/14/16 Range/Units 06:42 Glucose 157 H (74-99) mg/dL Troponin I 2 negative EKG-sinus rhythm nonspecific T-wave changes Assessment and Plan Plan: Assessment: -Atypical chest pain as a burning sensation associated with uncontrolled blood pressure, could be exacerbation of GERD -Essential hypertension uncontrolled on presentation patient has stopped taking his medications -Hyperlipidemia -Chronic psoriasic is bilateral -Bipolar disorder not otherwise specified Plan: We will look at patient's blood pressure medications and order accordingly. Cardiology was consulted. Serial cardiac enzymes are in place. Patient advised to make sure he takes his medications, and to follow with his family doctor and a regular basis, he expresses understanding of the same.
[2016-11-14 15:22] VITALS: BP 117/64; PULSE 63
--- NOTE | 2016-11-15 06:19 | CONS ---
A 46-year-old gentleman with history of bipolar disorder who is currently disabled, came into the hospital apparently with complaints of discomfort in the chest on and off. The quality of pain seems very atypical. He has hypertension and also gastroesophageal reflux disease, but has been weaning off the Lopressor that he was suppose to take at 50 mg daily and then he felt his heart racing and came into the hospital. His heart rate is about 98 beats per minute on arrival, sinus without any significant findings. He is resting comfortably, but has an element of anxiety. His chest pain is very atypical, sharp in nature, comes and goes. Has been going on for quite some time. His troponins are normal. His main issue at this time seems to be that he feels his heart racing and he has noted this since he started cutting back and stopping his Lopressor. PAST MEDICAL HISTORY: 1. Bipolar disorder. 2. History of gastroesophageal reflux disease 3. Hypertension. 4. Hyperlipidemia. 5. Status post adenoidectomy and tonsillectomy. Medications at home that he was suppose to take include: 1. Celexa. 2. Lopressor. 3. Lamotrigine. 4. Prilosec. 5. Lisinopril 10 mg daily. 6. Vitamin supplements. ALLERGIES: He is allergic to KEFLEX. On examination, blood pressure is 118/70, pulse rate is about 84 per minute. HEENT: Unremarkable. Fundus was not examined by me. Neck is supple. No JVD. I do not hear a carotid bruit. There is no thyromegaly. Heart exam reveals S1, S2 heard normally in all areas without rub, murmur or gallop. Lungs are clear. Abdomen is soft, nontender. Lower extremities reveal normal pulses. No edema. Central nervous system is normal. The EKG reveals a sinus mechanism, no acute changes. Laboratory data revealed that his initial troponin is normal. We will repeat another troponin for this patient. IMPRESSION: 1. Atypical chest pain. 2. Palpitation secondary to withdrawal of his beta bertram. 3. Anxiety disorder. 4. History of bipolar disorder. RECOMMENDATIONS: I am recommending that we feed him with cardiac diet, increase activity. Perform additional troponin, if this is normal he can be discharged and have a stress test as an outpatient. We will resume all his medications including the beta bertram. Discussed my thoughts in detail with the patient and we will perform an outpatient stress test. We will discontinue heparin if his second troponin is normal and he can then be discharged later this evening. Thank you very much for the consult. DANIEL
[2016-11-15] MEDS ORDERED: ASPIRIN 325 MG TAB PO SCH (09:00)
--- NOTE | 2016-11-20 16:56 | P.DS ---
<Jennifer Leal - Last Filed: 11/20/16 16:42> Providers Date of admission: 11/14/16 07:50 Expected date of discharge: 11/14/16 Attending physician: Ton Alberto Consults: 11/14/16 07:50 Consult Physician Urgent Consulting Provider: Tomasa Licona Consult Reason/Comments: cp Do you want consulting provider notified?: Yes Primary care physician: Nora Sepulveda Hospital Course: FINAL DIAGNOSES: -Atypical chest pain with associated uncontrolled blood pressure possibly an exacerbation of GERD -Essential hypertension uncontrolled on presentation patient stopped taking his medications -Hyperlipidemia Chronic psoriatic arthritis -Bipolar disorder not otherwise specified HOSPTIAL COURSE: 46-year-old gentleman who was admitted with atypical chest pain, uncontrolled hypertension. Cardiology consulted, Troponins were drawn and were negative. The occasions adjusted and Beta bertram added, daily regimen. stress tested to be done in the outpatient setting. Patient is ambulatory in the [facility], tolerating his diet, troponins are negative and patient is stable for discharge. PHYSICAL EXAM: CARDIOVASCULAR: First and second sounds noted no edema RESPIRATORY: . Respiratory effort normal, diminished breath sounds bilaterally. Patient was seen and examined by nurse practitioner Jennifer Leal and all elements of the case discussed with attending Dr. Alberto DISPOSITION: Home self-care to his family. Patient should follow-up outpatient with Christiano Ramirez, and Dr. Nora eSpulveda in a week Patient Condition at Discharge: Stable Plan - Discharge Summary New Discharge Prescriptions: New Aspirin 81 mg PO DAILY #1 chewable Lisinopril-Hctz 10-12.5 mg [Zestoretic 10-12.5] 1 tab PO DAILY #30 tab Continue lamoTRIgine [LaMICtal] 25 mg PO BID Citalopram Hydrobromide [CeleXA] 40 mg PO DAILY Omeprazole [PriLOSEC] 40 mg PO DAILY Simvastatin [Zocor] 10 mg PO DAILY Triamcinolone 0.1% Cream [Kenalog] 1 applicatio TOPICAL BID PRN PRN Reason: psoriasis flares Changed Metoprolol Tartrate [Lopressor] 25 mg PO BID #0 Discontinued Lisinopril [Zestril] 10 mg PO DAILY No Action Multivitamin [Men's Multi-Vitamin] 1 tab PO DAILY Cyanocobalamin (Vitamin B-12) [Vitamin B-12] 1,000 mcg PO DAILY Discharge Medication List Citalopram Hydrobromide [CeleXA] 40 mg PO DAILY 09/11/15 [History] lamoTRIgine [LaMICtal] 25 mg PO BID 09/11/15 [History] Omeprazole [PriLOSEC] 40 mg PO DAILY 03/18/16 [History] Multivitamin [Men's Multi-Vitamin] 1 tab PO DAILY 07/06/16 [History] Cyanocobalamin (Vitamin B-12) [Vitamin B-12] 1,000 mcg PO DAILY 08/19/16 [ History] Simvastatin [Zocor] 10 mg PO DAILY 08/19/16 [History] Aspirin 81 mg PO DAILY #1 chewable 11/14/16 [Rx] Lisinopril-Hctz 10-12.5 mg [Zestoretic 10-12.5] 1 tab PO DAILY #30 tab 11/14/16 [Rx] Metoprolol Tartrate [Lopressor] 25 mg PO BID #0 11/14/16 [Rx] Triamcinolone 0.1% Cream [Kenalog] 1 applicatio TOPICAL BID PRN 11/14/16 [ History] Follow up Appointment(s)/Referral(s): Ayden Ramirez MD [STAFF PHYSICIAN] - 1 Week (Office will call patient with follow up appointment Outpatient stress test will be on November 30 @ 9:15 a.m. ) Nora Sepulveda DO [Primary Care Provider] - 1-2 days Patient Instructions/Handouts: Chest Pain (ED) Discharge Disposition: HOME SELF-CARE <Ton Alberto - Last Filed: 11/20/16 17:02> Hospital Course: Attending note. Date of service-11/14/2016 This patient was seen and examined by me . I reviewed the note of my nurse practitioner, Ms. Leal. Discussed with her, additional findings as below. Patient admitted with atypical chest pain. Blood pressure was uncontrolled. Medications adjusted. Seen by cardiology. Patient to have stress test as an outpatient. On examination: Heart sound for 6 and normal. Lungs are clear. Investigations: Labs reviewed Assessment and plan: Atypical chest pain. Uncontrolled blood pressure. Patient to have an outpatient stress test. Follow as per discharge note.
== END 2016-11-14 16:32 | disposition home or self-care (01) ==
LOC: EC 05:57 → 3OBS 07:50
PROVIDERS: ADMIT Hospitalist; ATTEND Hospitalist
DX: R07.89 Other chest pain (principal); R00.2 Palpitations; R00.0 Tachycardia, unspecified; I10 Essential (primary) hypertension; E78.5 Hyperlipidemia, unspecified; E78.00 Pure hypercholesterolemia, unspecified; L40.9 Psoriasis, unspecified; F31.9 Bipolar disorder, unspecified; F41.9 Anxiety disorder, unspecified; K21.9 Gastro-esophageal reflux disease without esophagitis; M54.9 Dorsalgia, unspecified; T44.7X6A Underdosing of beta-adrenoreceptor antagonists, initial encounter; Z91.138 Patient's unintentional underdosing of medication regimen for other reason; Z79.899 Other long term (current) drug therapy; Z88.1 Allergy status to other antibiotic agents; Z87.891 Personal history of nicotine dependence; Z80.42 Family history of malignant neoplasm of prostate
CPT/HCPCS: 96365 ×2; 96376 ×2; 96361 ×2; 99291; 36415; 93005; 85379; 80053; 82550; 82553; 83690; 83735; 84484; 85025; 85610; 85730; 71020; G0378; J1644 ×2

== ENCOUNTER → 2016-11-30 | Outpatient (CLI) | payer MEDICARE, OTHER ==
--- NOTE | 2016-11-30 10:28 | ECHOS ---
Referral Reason:R07.9 chest pain MEASUREMENTS -------- HEIGHT: 185.4 cm WEIGHT: 102.5 kg BP: 146/81 WallScoring: string WallScoring: string WallScoring: string FINDINGS -------- Utilizing the standard Arturo protocol the patient was exercised for 9 minutes, 0 seconds, achieving a maximum heart rate of 155 , which is 90 % of predicted maximal heart rate. There was physiologic heart rate and blood pressure response to exercise. Max Heart Rate: 155 % of Max Predicted Heart Rate: 90 Rest Heart Rate: 84 Rest BP: 146/81 Max BP: 190/69 Mets Achieved: 10.3 The test was stopped because the target heart rate was achieved. This level of exercise represents a good exercise tolerance for age. Sinus rhythm. In response to stress, the ECG showed no ST-T wave changes (see exercise report for details). LV size, wall thickness and systolic function are normal, with an EF of 60%. Echo images were acquired at peak stress which demonstrated appropriate augmentation of all left ventricular segments with slight decrease in cavity size. CONCLUSIONS -------- 1. This level of exercise represents a good exercise tolerance for age. 2. Sinus rhythm. 3. In response to stress, the ECG showed no ST-T wave changes (see exercise report for details). 4. LV size, wall thickness and systolic function are normal, with an EF of 60%. 5. Echo images were acquired at peak stress which demonstrated appropriate augmentation of all left ventricular segments with slight decrease in cavity size. 6. No 2D echocardiographic evidence of inducible ischemia to achieved workload. UI LEAD DEVELOPER: Juaquin Gresham RDCS
--- NOTE | 2016-12-01 15:53 | EST ---
Referral Reason:R07.9 chest pain MEASUREMENTS -------- HEIGHT: 185.4 cm WEIGHT: 102.5 kg BP: 146/81 FINDINGS -------- Utilizing the standard Arturo protocol the patient was exercised for 9 minutes, 0 seconds, achieving a maximum heart rate of 155 , which is 90 % of predicted maximal heart rate. There was physiologic heart rate and blood pressure response to exercise. Max Heart Rate: 155 % of Max Predicted Heart Rate: 90 Rest Heart Rate: 84 Rest BP: 146/81 Max BP: 190/69 Mets Achieved: 10.3 The test was stopped because the target heart rate was achieved. This level of exercise represents a good exercise tolerance for age. Sinus rhythm. In response to stress, the ECG showed no ST-T wave changes (see exercise report for details). LV size, wall thickness and systolic function are normal, with an EF of 60%. Echo images were acquired at peak stress which demonstrated appropriate augmentation of all left ventricular segments with slight decrease in cavity size. CONCLUSIONS -------- 1. This level of exercise represents a good exercise tolerance for age. 2. Sinus rhythm. 3. In response to stress, the ECG showed no ST-T wave changes (see exercise report for details). 4. LV size, wall thickness and systolic function are normal, with an EF of 60%. 5. Echo images were acquired at peak stress which demonstrated appropriate augmentation of all left ventricular segments with slight decrease in cavity size. 6. No 2D echocardiographic evidence of inducible ischemia to achieved workload. BE[employer] DEPARTMENT SUPERVISOR: Juaquin Gresham RDCS MTDHannah
== END | disposition home or self-care (01) ==
LOC: RADNMMAIN 09:21
PROVIDERS: ATTEND Internal Medicine Interventional Cardiology
DX: R07.9 Chest pain, unspecified (principal)
CPT/HCPCS: 93017; 93350

== ENCOUNTER 2017-02-19 22:29 | Emergency (ER) | payer MEDICARE, OTHER ==
[2017-02-19 22:34] VITALS: BP 123/79; PULSE 83; RESP 16; TEMP 98.2
[2017-02-19] MEDS ORDERED: LEVOFLOXACIN 500 MG TAB PO STA (22:42)
[2017-02-19] MEDS ORDERED: DIPH,PERTUS(ACELL)TETVAC-LF 0.5 ML VIAL IM ONE (22:42)
--- NOTE | 2017-02-19 22:45 | ED ---
Lower Extremity Injury HPI - General Chief Complaint: Extremity Injury, Lower Stated Complaint: Foot Pain Time Seen by Provider: 02/19/17 22:36 Source: patient, RN notes reviewed Mode of arrival: ambulatory Limitations: no limitations - History of Present Illness Initial Comments: 46-year-old male presents emergency Department chief complaint of puncture wound to his right foot. Patient states she stepped on a nail earlier today. He states the difficulty of shoe. He was working on his doctor when this happened. He states there is small amount of blood that he noted. Patient is unsure when his last tetanus was. Patient states there is no pain at this time is able to ambulate. did state that he wash out the wound. - Related Data Home Medications Medication Instructions Recorded Confirmed Citalopram Hydrobromide [CeleXA] 40 mg PO DAILY 09/11/15 11/14/16 lamoTRIgine [LaMICtal] 25 mg PO BID 09/11/15 11/14/16 Omeprazole [PriLOSEC] 40 mg PO DAILY 03/18/16 11/14/16 Multivitamin [Men's Multi-Vitamin] 1 tab PO DAILY 07/06/16 11/14/16 Cyanocobalamin (Vitamin B-12) 1,000 mcg PO DAILY 08/19/16 11/14/16 [Vitamin B-12] Simvastatin [Zocor] 10 mg PO DAILY 08/19/16 11/14/16 Triamcinolone 0.1% Cream [Kenalog] 1 applicatio TOPICAL BID PRN 11/14/16 Previous Rx's Medication Instructions Recorded Aspirin 81 mg PO DAILY #1 chewable 11/14/16 Lisinopril-Hctz 10-12.5 mg 1 tab PO DAILY #30 tab 11/14/16 [Zestoretic 10-12.5] Metoprolol Tartrate [Lopressor] 25 mg PO BID #0 11/14/16 Ciprofloxacin HCl [Cipro] 500 mg PO Q12HR #20 tablet 02/19/17 Allergies Allergy/AdvReac Type Severity Reaction Status Date / Time cephalexin monohydrate AdvReac Nausea & Verified 02/19/17 22:34 [From Keflex] Vomiting Review of Systems ROS Statement: Those systems with pertinent positive or pertinent negative responses have been documented in the HPI. ROS Other: All systems not noted in ROS Statement are negative. Past Medical History Past Medical History: GERD/Reflux, Hyperlipidemia, Hypertension, Skin Disorder Additional Past Medical History / Comment(s): PSORIASIS, back Pain History of Any Multi-Drug Resistant Organisms: None Reported Past Surgical History: Adenoidectomy, Tonsillectomy Additional Past Surgical History / Comment(s): T & A (7 YRS OLD), EGD/ colonoscopy Past Anesthesia/Blood Transfusion Reactions: Postoperative Nausea & Vomiting ( PONV) Past Psychological History: Anxiety, Bipolar, Panic Disorder Smoking Status: Former smoker - Past Family History Mother Family Medical History: Cancer Additional Family Medical History / Comment(s): MELANOMA Father Family Medical History: Cancer Additional Family Medical History / Comment(s): PROSTATE CANCER. General Exam Limitations: no limitations General appearance: alert, in no apparent distress Respiratory exam: Present: normal lung sounds bilaterally. Absent: respiratory distress, wheezes, rales, rhonchi, stridor Cardiovascular Exam: Present: regular rate, normal rhythm, normal heart sounds. Absent: systolic murmur, diastolic murmur, rubs, gallop, clicks Extremities exam: Present: other (Right foot there is a small puncture wound noted at the ball of the foot there is no erythema there is nontender) Course Vital Signs 02/19/17 22:32 Temperature 98.2 F Pulse Rate 83 Respiratory 16 Rate Blood Pressure 123/79 O2 Sat by Pulse 97 Oximetry Medical Decision Making - Medical Decision Making 46-year-old male presented for puncture wound to his right foot from a nail did go through the shoe patient was started on ciprofloxacin to cover for possible pseudomonas risk. Patient was also updated on his tetanus return parameters were discussed. Disposition Clinical Impression: Puncture wound of foot Disposition: HOME SELF-CARE Condition: Stable Instructions: Puncture Wound (ED) Additional Instructions: Please return to the Emergency Department if symptoms worsen or any other concerns. Prescriptions: Ciprofloxacin HCl [Cipro] 500 mg PO Q12HR #20 tablet Referrals: Nora Sepulveda DO [Primary Care Provider] - 1-2 days Time of Disposition: 22:45
== END 2017-02-19 23:04 | disposition home or self-care (01) ==
LOC: EC 22:29
DX: S91.331A Puncture wound without foreign body, right foot, initial encounter (principal); E78.5 Hyperlipidemia, unspecified; K21.9 Gastro-esophageal reflux disease without esophagitis; F31.9 Bipolar disorder, unspecified; Z87.891 Personal history of nicotine dependence; Z79.899 Other long term (current) drug therapy; Z88.1 Allergy status to other antibiotic agents; Z23 Encounter for immunization; W45.0XXA Nail entering through skin, initial encounter
CPT/HCPCS: 90471; 90715; 99283

== ENCOUNTER → 2018-10-19 | Outpatient (CLI) | payer MEDICARE, OTHER ==
--- NOTE | 2018-10-19 15:53 | XR ---
Right shoulder HISTORY: Strain one week prior, pain 3 views of the right shoulder Bone mineralization, joint spaces and alignment are maintained. Right lung apex as visualized is norm al IMPRESSION: No fracture or dislocation.
== END | disposition home or self-care (01) ==
LOC: RADXRYALE 13:37
PROVIDERS: ATTEND Internal Medicine
DX: M25.511 Pain in right shoulder (principal)

== ENCOUNTER → 2018-11-06 | Outpatient (CLI) | payer MEDICARE, OTHER ==
--- NOTE | 2018-11-06 10:23 | US ---
EXAMINATION TYPE: US liver DATE OF EXAM: 11/06/2018 COMPARISON: CT 2016 CLINICAL HISTORY: R94.5 ABN LFTS. Abnormal LFT's EXAM MEASUREMENTS: Liver Length: 18.3 cm Gallbladder Wall: 0.2 cm CBD: 0.3 cm Right Kidney: 11.1 x 5.5 x 4.8 cm Pancreas: Limited by bowel gas Liver: enlarged, heterogeneous, attenuating, decreased visualization of vessels suggestive of fatty infiltrate Gallbladder: wnl Evidence for sonographic Werner's sign: no CBD: wnl Right Kidney: wnl IMPRESSION: 1. Hepatomegaly with heterogeneous pattern suggestive of fatty infiltration or hepatocellular disease . Correlate clinically.
== END | disposition home or self-care (01) ==
LOC: RADUSWWP 09:41
PROVIDERS: ATTEND Internal Medicine
DX: R16.0 Hepatomegaly, not elsewhere classified (principal)
CPT/HCPCS: 76705

== ENCOUNTER → 2019-02-05 | Outpatient (CLI) | payer MEDICARE, OTHER ==
[2019-02-05 15:58] LABS: HGB 14.4 gm/dL (13.0-17.5); MCH 30.4 pg (25.0-35.0); MCHC 35.2 g/dL (31.0-37.0); MCV 86.4 fL (80.0-100.0); Mean Platelet Volume 6.3; Platelet Count 276 k/uL (150-450); RBC 4.75 m/uL (4.30-5.90); RDW 12.7 % (11.5-15.5)
[2019-02-05 23:37] LABS: Albumin 4.7 g/dL (3.80-4.90); Albumin/Globulin Ratio 2.04 (1.60-3.17); Bilirubin, Conjugated 0.2 mg/dL (0.20-0.40); Bilirubin,Unconjugated 0.6 mg/dL; Chol/HDL Ratio 4.94; Globulin 2.3 g/dL (1.6-3.3); LDL Cholesterol,Calculated 107.8 mg/dL (0.0-131.0); Total Bilirubin 0.8 mg/dL (0.3-1.2); VLDL Calculation 34.2 mg/dL (5.00-40.00)
[2019-02-06 01:21] LABS: Hepatitis A Antibody IgM Non-Reactive (Non-Reactive); Hepatitis B Core IgM Non-Reactive (Non-Reactive); Hepatitis B Surface Antigen Non-Reactive (Non-Reactive); Hepatitis C IgG Antibody Non-Reactive (Non-Reactive)
== END | disposition home or self-care (01) ==
LOC: LABWHC1 15:39
PROVIDERS: ATTEND Physician Assistant
DX: R74.8 Abnormal levels of other serum enzymes (principal)
CPT/HCPCS: 36415; 80061; 80074; 80076; 85027

== ENCOUNTER → 2019-03-19 | Outpatient (CLI) | payer MEDICARE, OTHER ==
--- NOTE | 2019-03-19 13:51 | XR ---
Right elbow HISTORY: Trauma and pain 3 views the right elbow There is no evident joint effusion. Bone mineralization, joint spaces and alignment are maintained. IMPRESSION: No fracture or dislocation.
== END | disposition home or self-care (01) ==
LOC: RADXRYALE 11:34
PROVIDERS: ATTEND Internal Medicine
DX: M25.521 Pain in right elbow (principal)

== ENCOUNTER 2019-05-21 18:01 | Emergency (ER) | payer MEDICARE, OTHER ==
[2019-05-21 18:04] VITALS: RESP 18; TEMP 98.3
[2019-05-21] MEDS ORDERED: ONDANSETRON 4 MG/2 ML VIAL IVP STA (18:30)
[2019-05-21] MEDS ORDERED: DICYCLOMINE 10 MG/ML 2 ML AMP IM STA (18:30)
[2019-05-21] MEDS ORDERED: SODIUM CHLORIDE 0.9% 1,000 ML IV STA (18:30)
[2019-05-21] MEDS ORDERED: PANTOPRAZOLE 40 MG/10 ML VIAL IVP STA (18:30)
--- NOTE | 2019-05-21 18:30 | ED ---
Abdominal Pain HPI - General Chief Complaint: Abdominal Pain Stated Complaint: Upper abd pain Time Seen by Provider: 05/21/19 18:07 Source: patient Mode of arrival: ambulatory Limitations: no limitations - History of Present Illness Initial Comments: Patient is a 49-year-old male with history of IBS and GERD presenting to emergency Department with a chief complaint of abdominal pain. Patient states for the last few days he has developed epigastric discomfort appears to be exacerbated whenever he is laying down. Patient reports he has been battling with GERD for several years and it is under control for the most part, however there has been increase in symptoms over the last few days. Patient reports 2 years ago he had seen a GI specialist, and had upper and lower scope performed indicating signs of gastritis. Patient states states he wanted to see his primary care but could not get in so came to the ED for evaluation. Patient states he does intermittent fasting and drinks large amounts of coffee. This report intermittent nausea but denies any vomiting or diarrhea. Denies hematuria, hematochezia or melena. Denies night sweats or chills. Denies any back pain chest pain or shortness of breath. - Related Data Home Medications Medication Instructions Recorded Confirmed Citalopram Hydrobromide [CeleXA] 40 mg PO DAILY 09/11/15 11/14/16 lamoTRIgine [LaMICtal] 25 mg PO BID 09/11/15 11/14/16 Omeprazole [PriLOSEC] 40 mg PO DAILY 03/18/16 11/14/16 Multivitamin [Men's Multi-Vitamin] 1 tab PO DAILY 07/06/16 11/14/16 Cyanocobalamin (Vitamin B-12) 1,000 mcg PO DAILY 08/19/16 11/14/16 [Vitamin B-12] Simvastatin [Zocor] 10 mg PO DAILY 08/19/16 11/14/16 Triamcinolone 0.1% Cream [Kenalog 1 applicatio TOPICAL BID PRN 11/14/16 11/14/16 0.1% Cream] Previous Rx's Medication Instructions Recorded Aspirin 81 mg PO DAILY #1 chewable 11/14/16 Lisinopril-Hctz 10-12.5 mg 1 tab PO DAILY #30 tab 11/14/16 [Zestoretic 10-12.5] Metoprolol Tartrate [Lopressor] 25 mg PO BID #0 11/14/16 Ciprofloxacin HCl [Cipro] 500 mg PO Q12HR #20 tablet 02/19/17 Allergies Allergy/AdvReac Type Severity Reaction Status Date / Time cephalexin monohydrate AdvReac Nausea & Verified 05/21/19 18:04 [From Keflex] Vomiting Review of Systems ROS Statement: Those systems with pertinent positive or pertinent negative responses have been documented in the HPI. ROS Other: All systems not noted in ROS Statement are negative. Past Medical History Past Medical History: GERD/Reflux, Hyperlipidemia, Hypertension, Skin Disorder Additional Past Medical History / Comment(s): PSORIASIS, back Pain History of Any Multi-Drug Resistant Organisms: None Reported Past Surgical History: Adenoidectomy, Tonsillectomy Additional Past Surgical History / Comment(s): T & A (7 YRS OLD), EGD/colonoscopy Past Anesthesia/Blood Transfusion Reactions: Postoperative Nausea & Vomiting (PONV) Past Psychological History: Anxiety, Bipolar, Panic Disorder Smoking Status: Former smoker Past Alcohol Use History: None Reported Past Drug Use History: None Reported - Past Family History Mother Family Medical History: Cancer Additional Family Medical History / Comment(s): MELANOMA Father Family Medical History: Cancer Additional Family Medical History / Comment(s): PROSTATE CANCER. General Exam Limitations: no limitations General appearance: alert, in no apparent distress Head exam: Present: atraumatic, normocephalic, normal inspection Eye exam: Present: normal appearance, PERRL, EOMI Pupils: Present: normal accommodation ENT exam: Present: normal exam, normal oropharynx, mucous membranes moist, TM's normal bilaterally, normal external ear exam Neck exam: Present: normal inspection, full ROM Respiratory exam: Present: normal lung sounds bilaterally Cardiovascular Exam: Present: regular rate, normal rhythm, normal heart sounds GI/Abdominal exam: Present: soft, tenderness (Epigastric tenderness). Absent: distended, guarding, rebound Extremities exam: Present: normal inspection, full ROM Back exam: Present: normal inspection, full ROM Neurological exam: Present: alert, oriented X3 Psychiatric exam: Present: normal affect, normal mood Skin exam: Present: warm, dry, intact, normal color Course Vital Signs 05/21/19 18:02 Temperature 98.3 F Pulse Rate 70 Respiratory 18 Rate Blood Pressure 134/84 O2 Sat by Pulse 98 Oximetry Medical Decision Making - Medical Decision Making Patient is a 49-year-old male with history of IBS and GERD presenting to emergen cy Department with a chief complaint of abdominal pain. On exam patient does have mild to moderate epigastric tenderness. Rest of physical examination is unremarkable. She does report to eating late at night and drinking a lot of coffee. Patient does intermittent fasting. Laboratory workup is unremarkable. Patient was given fluids, Bentyl and Protonix. Reevaluation patient reports much improvement in symptoms. I suspect the patient has an exacerbation of his GERD. I advised the patient to not eat right before going to bed. Patient advised to drink avoid coffee or other acidic foods. Patient also advised to stop intermittent fasting. Patient advised to continue taking the omeprazole. He was advised to follow-up with primary care. Strict return parameters were thoroughly discussed with patient is under sinning agreeable. Case discussed with physician. - Lab Data Result diagrams: 05/21/19 18:35 05/21/19 18:35 Lab Results 05/21/19 05/21/19 05/21/19 Range/Units 18:35 18:35 18:35 WBC 6.1 (3.8-10.6) k/uL RBC 4.64 (4.30-5.90) m/uL Hgb 14.0 (13.0-17.5) gm/dL Hct 40.9 (39.0-53.0) % MCV 88.2 (80.0-100.0) fL MCH 30.2 (25.0-35.0) pg MCHC 34.2 (31.0-37.0) g/dL RDW 12.7 (11.5-15.5) % Plt Count 231 (150-450) k/uL Neutrophils % 66 % Lymphocytes % 20 % Monocytes % 6 % Eosinophils % 4 % Basophils % 3 % Neutrophils # 4.0 (1.3-7.7) k/uL Lymphocytes # 1.2 (1.0-4.8) k/uL Monocytes # 0.4 (0-1.0) k/uL Eosinophils # 0.2 (0-0.7) k/uL Basophils # 0.2 (0-0.2) k/uL Sodium 141 (137-145) mmol/L Potassium 4.4 (3.5-5.1) mmol/L Chloride 106 (98-107) mmol/L Carbon Dioxide 28 (22-30) mmol/L Anion Gap 7 mmol/L BUN 20 (9-20) mg/dL Creatinine 0.82 (0.66-1.25) mg/dL Est GFR (CKD-EPI)AfAm >90 (>60 ml/min/1.73 sqM) Est GFR (CKD-EPI)NonAf >90 (>60 ml/min/1.73 sqM) Glucose 95 (74-99) mg/dL Calcium 9.7 (8.4-10.2) mg/dL Total Bilirubin 0.6 (0.2-1.3) mg/dL AST 24 (17-59) U/L ALT 24 (4-49) U/L Alkaline Phosphatase 82 (38-126) U/L Total Protein 7.3 (6.3-8.2) g/dL Albumin 4.3 (3.5-5.0) g/dL Amylase 68 (30-110) U/L Lipase 303 H (23-300) U/L Urine Color Yellow Urine Appearance Clear (Clear) Urine pH 6.5 (5.0-8.0) Ur Specific [place] 1.029 (1.001-1.035) Urine Protein Trace H (Negative) Urine Glucose (UA) Negative (Negative) Urine Ketones Negative (Negative) Urine Blood Negative (Negative) Urine Nitrite Negative (Negative) Urine Bilirubin Negative (Negative) Urine Urobilinogen 3.0 (<2.0) mg/dL Ur Leukocyte Esterase Negative (Negative) Disposition Clinical Impression: GERD (gastroesophageal reflux disease), Epigastric abdominal pain Disposition: HOME SELF-CARE Condition: Stable Instructions (If sedation given, give patient instructions): Esophageal Spasm (ED) Additional Instructions: Please follow up with primary care. Avoid eating acidic foods and drinking coffee. Do not eat right before going to sleep. Keep about elevated at the head when sleeping. Avoid intermittent fasting. Please return to emergency department if symptoms worsen. Continue taking omeprazole. Is patient prescribed a controlled substance at d/c from ED?: No Referrals: Shannon Cleary MD [Primary Care Provider] - 1-2 days Time of Disposition: 19:28
[2019-05-21 18:50] LABS: Basophils # (A) 0.2 k/uL (0-0.2); Basophils % (A) 3 %; Eosinophils # (A) 0.2 k/uL (0-0.7); Eosinophils % (A) 4 %; HCT 40.9 % (39.0-53.0); Lymphocytes # (A) 1.2 k/uL (1.0-4.8); Lymphocytes % (A) 20 %; MCH 30.2 pg (25.0-35.0); MCHC 34.2 g/dL (31.0-37.0); MCV 88.2 fL (80.0-100.0); Mean Platelet Volume 7.1; Monocytes # (A) 0.4 k/uL (0-1.0); Monocytes % (A) 6 %; Neutrophils % (A) 66 %; Platelet Count 231 k/uL (150-450); RBC 4.64 m/uL (4.30-5.90); RDW 12.7 % (11.5-15.5); WBC 6.1 k/uL (3.8-10.6)
[2019-05-21 18:58] LABS: Appearance,Urine Clear (Clear); Bilirubin,Urine Negative (Negative); Blood,Urine Negative (Negative); Color,Urine Yellow; Glucose,Urine (UA) Negative (Negative); Ketones,Urine Negative (Negative); Leukocyte Esterase,Urine Negative (Negative); Nitrite,Urine Negative (Negative); PH, Urine 6.5 (5.0-8.0); Protein,Urine Trace (Negative); Specific Gravity,Urine 1.029 (1.001-1.035)
[2019-05-21 19:00] LABS: ALT 24 U/L (4-49); AST 24 U/L (17-59); African American GFR (CKD) >90 (>60 ml/min/1.73 sqM); Albumin 4.3 g/dL (3.5-5.0); Alkaline Phosphatase 82 U/L (38-126); Amylase 68 U/L (30-110); Anion Gap 7 mmol/L; Blood Urea Nitrogen 20 mg/dL (9-20); Calcium 9.7 mg/dL (8.4-10.2); Carbon Dioxide 28 mmol/L (22-30); Chloride 106 mmol/L (98-107); Glucose 95 mg/dL (74-99); Non-African American GFR(CKD) >90 (>60 ml/min/1.73 sqM); Potassium 4.4 mmol/L (3.5-5.1); Sodium 141 mmol/L (137-145); Total Bilirubin 0.6 mg/dL (0.2-1.3); Total Protein 7.3 g/dL (6.3-8.2)
[2019-05-21 20:16] VITALS: BP 118/72; PULSE 61
== END 2019-05-21 20:15 | disposition home or self-care (01) ==
LOC: EC 18:01
DX: K21.9 Gastro-esophageal reflux disease without esophagitis (principal); K58.9 Irritable bowel syndrome, unspecified; E78.5 Hyperlipidemia, unspecified; I10 Essential (primary) hypertension; F31.9 Bipolar disorder, unspecified; F41.0 Panic disorder [episodic paroxysmal anxiety]; Z87.891 Personal history of nicotine dependence; Z88.1 Allergy status to other antibiotic agents; Z79.899 Other long term (current) drug therapy
CPT/HCPCS: 36415; 93005; 80053; 82150; 83690; 85025; 81003; 99284; 96374; 96375; 96361 ×2; 96372; J0500; J2405; C9113

== ENCOUNTER → 2020-08-03 | Outpatient (CLI) | payer MEDICARE, OTHER | END | disposition home or self-care (01) | LOC: LABWHC1 16:37 | PROVIDERS: ATTEND Internal Medicine | DX: Z20.822 Contact with and (suspected) exposure to COVID-19 (principal) | CPT/HCPCS: U0003; C9803; U0005 ==

== ENCOUNTER → 2020-08-27 | Outpatient (CLI) | payer MEDICARE, OTHER ==
--- NOTE | 2020-08-27 11:38 | CT ---
EXAMINATION TYPE: CT soft tissue neck w con DATE OF EXAM: 08/27/2020 COMPARISON: None HISTORY: left side mass/pain, abnormal US CT DLP: 609.8 mGycm CONTRAST: CT scan of the neck is performed with IV Contrast, patient injected with 100 mL of Isovue 300. Contrast enhanced CT of the neck was performed from the skull base through the lung apices. AIRWAY: The supraglottic, glottic, and subglottic portions of the airway appear patent and free of mass. SALIVARY GLANDS: The submandibular and parotid glands are free of mass or inflammatory process. THYROID GLAND: No nodules or masses seen. LYMPH NODES: No adenopathy seen greater than 1cm. LUNG APICES: No nodule or mass is seen. OTHER: Vascular structures are patent. No significant degenerative change of the cervical spine. N o abscess seen. IMPRESSION: With no distinct mass identified at this time. Correlate clinically.
== END | disposition home or self-care (01) ==
LOC: RADCTMAIN 07:42
PROVIDERS: ATTEND Internal Medicine
DX: M79.89 Other specified soft tissue disorders (principal)
CPT/HCPCS: 70491; Q9967

== ENCOUNTER 2020-09-08 10:07 | Emergency (ER) | payer MEDICARE, OTHER ==
[2020-09-08 10:13] VITALS: BP 157/99; PULSE 71; RESP 16; TEMP 97.9
[2020-09-08] MEDS ORDERED: KETOROLAC 15 MG/ML 1 ML VIAL IM STA (10:41)
--- NOTE | 2020-09-08 10:52 | ED ---
General Adult HPI - General Chief complaint: Neck Pain/Injury Stated complaint: face/ear/neck pain Time Seen by Provider: 09/08/20 10:24 Source: patient Mode of arrival: ambulatory Limitations: no limitations - History of Present Illness Initial comments: 50-year-old male with a past medical history of hyperlipidemia, hypertension presents to the emergency room for a chief complaint of left-sided neck pain. Patient reports he has had a sided neck pain for at least 6 weeks. Patient reports that the pain is mostly in the anterior neck and radiates up to the left ear. States it is a shooting pain. States he also has pressure above his teeth. He denies it feels like his teeth hurt and he has been getting them pulled. Patient also reports left-sided posterior neck pain. States it hurts to turn his neck to the left. Patient denies fevers. States he has seen primary care for this. Patient states that an ultrasound of his neck as well as a CT. I did review the CT soft tissue neck with contrast on August 27, no evidence for masses. Patient states that he is supposed to be referred to ENT or primary care however they have not contacted him to set this up and he does not want to wait any longer.Patient has no other complaints at this time including shortness of breath, chest pain, abdominal pain, nausea or vomiting, headache, or visual changes. - Related Data Home Medications Medication Instructions Recorded Confirmed Citalopram Hydrobromide [CeleXA] 40 mg PO DAILY 09/11/15 11/14/16 lamoTRIgine [LaMICtal] 25 mg PO BID 09/11/15 11/14/16 Omeprazole [PriLOSEC] 40 mg PO DAILY 03/18/16 11/14/16 Multivitamin [Men's Multi-Vitamin] 1 tab PO DAILY 07/06/16 11/14/16 Cyanocobalamin (Vitamin B-12) 1,000 mcg PO DAILY 08/19/16 11/14/16 [Vitamin B-12] Simvastatin [Zocor] 10 mg PO DAILY 08/19/16 11/14/16 Triamcinolone 0.1% Cream [Kenalog 1 applicatio TOPICAL BID PRN 11/14/16 11/14/16 0.1% Cream] Previous Rx's Medication Instructions Recorded Aspirin 81 mg PO DAILY #1 chewable 11/14/16 Lisinopril-Hctz 10-12.5 mg 1 tab PO DAILY #30 tab 11/14/16 [Zestoretic 10-12.5] Metoprolol Tartrate [Lopressor] 25 mg PO BID #0 11/14/16 Ciprofloxacin HCl [Cipro] 500 mg PO Q12HR #20 tablet 02/19/17 Amoxicillin/Potassium Clav 1 tab PO Q12HR #20 tab 09/08/20 [Augmentin 875-125 Tablet] Fluticasone Nasal [place] [Flonase 1 spray EA NOSTRIL DAILY 7 Days #1 09/08/20 Nasal [place]] bottle Allergies Allergy/AdvReac Type Severity Reaction Status Date / Time cephalexin monohydrate AdvReac Nausea & Verified 09/08/20 10:13 [From Keflex] Vomiting Review of Systems ROS Statement: Those systems with pertinent positive or pertinent negative responses have been documented in the HPI. ROS Other: All systems not noted in ROS Statement are negative. Past Medical History Past Medical History: GERD/Reflux, Hyperlipidemia, Hypertension, Skin Disorder Additional Past Medical History / Comment(s): PSORIASIS, back Pain History of Any Multi-Drug Resistant Organisms: None Reported Past Surgical History: Adenoidectomy, Tonsillectomy Additional Past Surgical History / Comment(s): T & A (7 YRS OLD), EGD/colonoscopy Past Anesthesia/Blood Transfusion Reactions: Postoperative Nausea & Vomiting (PONV) Past Psychological History: Anxiety, Bipolar, Panic Disorder Smoking Status: Vaper Past Alcohol Use History: None Reported Past Drug Use History: None Reported - Past Family History Mother Family Medical History: Cancer Additional Family Medical History / Comment(s): MELANOMA Father Family Medical History: Cancer Additional Family Medical History / Comment(s): PROSTATE CANCER. General Exam Limitations: no limitations General appearance: alert, in no apparent distress Head exam: Present: atraumatic, normocephalic, normal inspection Eye exam: Present: normal appearance, PERRL, EOMI. Absent: scleral icterus, conjunctival injection, periorbital swelling ENT exam: Present: normal exam, normal oropharynx, mucous membranes moist, normal external ear exam. Absent: TM's normal bilaterally (slightly favian thematous with scarring on left TM) Neck exam: Present: tenderness (slight left anterior scm tenderness and left posterior cervical tenderness). Absent: meningismus, full ROM (patient has 30 degrees rotation of the neck to the left.) Respiratory exam: Present: normal lung sounds bilaterally. Absent: respiratory distress, wheezes, rales, rhonchi, stridor Cardiovascular Exam: Present: regular rate, normal rhythm, normal heart sounds. Absent: systolic murmur, diastolic murmur, rubs, gallop, clicks GI/Abdominal exam: Present: soft, normal bowel sounds. Absent: distended, tenderness, guarding, rebound, rigid Course Vital Signs 09/08/20 10:08 Temperature 97.9 F Pulse Rate 71 Respiratory 16 Rate Blood Pressure 157/99 O2 Sat by Pulse 97 Oximetry Medical Decision Making - Medical Decision Making HPI and physical exam as documented. Vitals are stable. CAT scan of soft tissue neck with contrast from August 27 was reviewed. This was unremarkable. Patient may have sinusitis given he has pressure above his teeth the radiates to his ear as well as feels congested. We will try patient on Augmentin and a nasal spray. It is also possible the patient has a torticollis given limited rotation to the left and pain along the left paracervical muscles. Patient was given Toradol. Patient does not want any muscle relaxers or opiate pain medication because this worsens his chronic anxiety. At this time I will give patient referral to ENT and orthopedics as he did not want to wait for his doctor to do this. I discussed if he has any worsening symptoms to return to the emergency room. Otherwise he will continue anti-inflammatories as well. I discussed this case with attending Dr. Roman who agrees with this assessment and treatment plan. Disposition Clinical Impression: Neck pain, Sinusitis Disposition: HOME SELF-CARE Condition: Good Instructions (If sedation given, give patient instructions): Cervical Strain (ED), Sinusitis (ED) Additional Instructions: Please take medications as directed. Continue motrin and tylenol for pain. Follow up with ENT and orthopedics. Follow up with primary care. Return to the ER for any worsening symptoms. Prescriptions: Amoxicillin/Potassium Clav [Augmentin 875-125 Tablet] 1 tab PO Q12HR #20 tab Fluticasone Nasal [place]ott [Flonase Nasal [place]ott] 1 spray EA NOSTRIL DAILY 7 Days #1 bottle Is patient prescribed a controlled substance at d/c from ED?: No Referrals: Shannon Cleary MD [Primary Care Provider] - 1-2 days Obermyer,Ihsan, MD [STAFF PHYSICIAN] - 1-2 days Kush Regan DO [Doctor of Osteopathic Medicine] - 1-2 days Time of Disposition: 10:49
== END 2020-09-08 11:02 | disposition home or self-care (01) ==
LOC: EC 10:07
DX: M54.2 Cervicalgia (principal); J32.9 Chronic sinusitis, unspecified; E78.5 Hyperlipidemia, unspecified; I10 Essential (primary) hypertension; K21.9 Gastro-esophageal reflux disease without esophagitis; F31.9 Bipolar disorder, unspecified
CPT/HCPCS: 99283; 96372; J1885

== ENCOUNTER → 2022-03-29 | Outpatient (CLI) | payer MEDICARE, OTHER ==
[2022-03-29 11:39] LABS: Ionized Calcium 6.2 mg/dL (4.5-5.3)
[2022-03-30 03:16] LABS: Hepatitis A Antibody IgM Nonreactive (Nonreactive); Hepatitis B Core IgM Nonreactive (Nonreactive); Hepatitis B Surface Antigen Nonreactive (Nonreactive); Hepatitis C IgG Antibody Nonreactive (Nonreactive)
== END | disposition home or self-care (01) ==
LOC: LABWHC1 10:04
PROVIDERS: ATTEND Internal Medicine
DX: R94.5 Abnormal results of liver function studies (principal); E83.52 Hypercalcemia
CPT/HCPCS: 36415; 80074; 82306; 82330; 83970; 84450; 84460

== ENCOUNTER 2022-05-18 06:18 | Day surgery (SDC) | payer MEDICARE, OTHER ==
[2022-05-13 15:02] VITALS: BMI 31.6
[~2022-05-18 06:18] MED LIST changes: +LIDOCAINE 1% (10MG/ML) FOR IV START INTRADERMA PRN
[2022-05-18] MEDS ORDERED: LACTATED RINGERS 1,000 ML IV ONE (06:51)
[2022-05-18 06:55] VITALS: RESP 16; TEMP 97
[2022-05-18] MEDS ORDERED: fentaNYL (PF) 50 MCG/ML 2 ML AMP ONE (07:25)
[2022-05-18] MEDS ORDERED: PROPOFOL 10 MG/ML 20 ML VIAL IV ONE (07:25)
[2022-05-18] MEDS ORDERED: MIDAZOLAM 2 MG/2 ML VIAL ONE (07:25)
[2022-05-18] MEDS ORDERED: LIDOCAINE 2% INJ 20 MG/ML (2 ML VIAL) ONE (07:25)
--- NOTE | 2022-05-18 07:47 | P.PCN ---
Date of Procedure: 05/18/22 Procedure(s) Performed: Brief history: Patient is a pleasant 52-year-old white male scheduled for an elective upper endoscopy as well as colonoscopy as a part of evaluation of long-standing history of GERD and prior history of colon polyps. Last colonoscopy was 5 years ago. Procedure performed: Esophagogastroduodenoscopy with biopsy Colonoscopy with biopsy Preoperative diagnosis: Long-standing history of GERD History of colon polyps Anesthesia: MAC Procedure: After informed consent was obtained from the patient was brought into the endoscopy unit and IV sedation was administered by anesthesia under continuous monitoring. Initially upper endoscopy was done. The Olympus GF 160 video endoscope was inserted inserted into the mouth and esophagus intubated without any difficulty and was gradually advanced into the stomach and duodenum and carefully examined. The bulb and second part of the duodenum appeared normal. The scope was then withdrawn into the stomach adequately insufflated with air and upon careful examination the antrum and body, cardia and fundus appeared normal. Small gastric polyps noted which were biopsied biopsy. The scope was then withdrawn into the esophagus. The GE junction was located at 40 cm to the incisors. It appeared regular with no erythema erosions or ulcerations. Rest of the esophagus appeared normal. Patient tolerated the procedure well. At this time the patient continued to remain sedation. Initial digital rectal examination was normal. Olympus CF 160 video colonoscope was then inserted into the rectum and gradually advanced to the cecum without any difficulty. Careful examination was performed as the scope was gradually being withdrawn. The prep was excellent. The cecum, ascending colon, transverse colon, descending colon, sigmoid colon and rectum appeared normal. Retroflexion was performed in the rectum and no lesions were noted. Patient tolerated the procedure well. Impression: 1. Upper endoscopy revealed small gastric polyps. No evidence of esophagitis or Robertson's esophagus 2. Colonoscopy revealed a 3 mm proximal rectal polyp status post cold biopsy Recommendations: Findings of this examination were discussed with the patient as well as his family. He was advised to follow with the biopsy results. If the biopsy results adenoma he can have a repeat colonoscopy in 5 years. In regards to the gastroesophageal reflux symptoms he will continue with omeprazole 20 mg daily and follow antireflux measures.
[2022-05-18 08:05] VITALS: BP 121/87; PULSE 61
== END 2022-05-18 08:23 | disposition home or self-care (01) ==
LOC: ORWHC2ENDO 06:18
PROVIDERS: ATTEND Internal Medicine Gastroenterology
DX: Z12.11 Encounter for screening for malignant neoplasm of colon (principal); K62.1 Rectal polyp; K31.7 Polyp of stomach and duodenum; K21.9 Gastro-esophageal reflux disease without esophagitis; Z88.1 Allergy status to other antibiotic agents; I10 Essential (primary) hypertension; E78.5 Hyperlipidemia, unspecified; F32.A Depression, unspecified; Z79.01 Long term (current) use of anticoagulants; Z79.811 Long term (current) use of aromatase inhibitors; Z79.891 Long term (current) use of opiate analgesic; Z79.899 Other long term (current) drug therapy
CPT/HCPCS: 88305; 45380; 43239; J2250; J3010; J2704; J2001